=== PATIENT | female | born 1955 | race Caucasian/White ===

== ENCOUNTER 2020-08-16 11:38 | Outpatient (CLI) | payer MEDICARE, SELFPAY ==
--- NOTE | ~2020-08-16 | MMUS_ITS ---
EXAMINATION: MM diagnostic preet BI w nataly, US breast RT limited HISTORY: Right axillary increased density TECHNIQUE: Additional 3-D tomosynthesis images of the breasts were performed and synthetic 2-D images were generated. CAD analysis was submitted and interpreted. High resolution limited right breast and axillary ultrasound was performed. COMPARISON: Comparison to multiple prior studies sequentially, with oldest reviewed study dated 07/13. BREAST PARENCHYMAL COMPOSITION: Breast composed of scattered areas of fibroglandular density. FINDINGS: MAMMOGRAPHIC FINDINGS: There are no suspicious masses, calcifications or architectural distortion in either breast to sugges t malignancy. ULTRASOUND: Limited right breast and axillary ultrasound: There is a 1.7 cm lymph node at the 10:00 position in t he axilla measuring. There is a 4 mm cyst at 10:00, 4 cm from the nipple. IMPRESSION: 1. No evidence for malignancy in either breast. 2. Routine yearly screening mammogram and regular clinical breast examination are recommended. BI-RADS Category 2: Benign finding(s). Reviewed, dictated and finalized at location A. LE SOFTWARE ENGINEER IMPRESSION: 1. No evidence for malignancy in either breast. 2. Routine yearly screening mammogram and regular clinical breast examination a re recommended. BI-RADS Category 2: Benign finding(s).
--- NOTE | ~2020-08-16 | DEXA_ITS ---
Bone Density Report Name: Loretta Victor Age: 65 Sex: Female Ethnicity: White Date of : 1955 Indication: postmenopausal; Referring Provider: HOSSEIN, MITCHELL Study: Bone densitometry was performed. Exam Date: August 16, 2020 Accession number: [id number] Bone Density: Region BMD T-score Z-score Classification AP Spine (L1-L4) 1.014 -0.3 1.5 Normal Femoral Neck (Left) 0.660 -1.7 -0.1 Osteopenia Total Hip (Left) 0.844 -0.8 0.5 Normal Total Hip Bilateral Avg 0.827 -1.0 0.4 Osteopenia Femoral Neck (Right) 0.627 -2.0 -0.4 Osteopenia Total Hip (Right) 0.810 -1.1 0.2 Osteopenia World Health Organization criteria for BMD impression classify patients as: Normal (T-score at or above -1.0), Osteopenia (T-score between -1.0 and -2.5), or Osteoporosis (T-score at or below -2.5). 10-year Fracture Risk(1): Major Osteoporotic Fracture 11% Hip Fracture 1.6% Reported Risk Factors: [place] (), Neck BMD=0.627, BMI=26.2 (1) FRAX(R) Version 3.08. Fracture probability calculated for an untreated patient. Fracture probability may be lower if the patient has received treatment. Previous Exams: Region Exam Age BMD T-score BMD Change BMD Change Date g/cm2 vs Baseline vs Previous AP Spine(L1-L4) 08/16/2020 65 1.014 -0.3 -0.116(-10.3%) -0.057(-5.3%)* 08/10/2017 62 1.071 0.2 -0.060(-5.3%)# -0.023(-2.1%)# 08/15/2013 58 1.094 0.4 -0.037(-3.2%)# -0.037(-3.2%)# 08/05/2010 55 1.131 0.8 Total Hip(Left) 08/16/2020 65 0.844 -0.8 -0.180(-17.6%) -0.139(-14.1%) 08/10/2017 62 0.982 0.3 -0.041(-4.0%)# -0.017(-1.7%)# 08/15/2013 58 0.999 0.5 -0.024(-2.4%)# -0.024(-2.4%)# 08/05/2010 55 1.024 0.7 Total Hip(Right) 08/16/2020 65 0.810 -1.1 -0.149(-15.6%) -0.105(-11.5%) 08/10/2017 62 0.915 -0.2 -0.044(-4.6%)# -0.014(-1.5%)# 08/15/2013 58 0.929 -0.1 -0.030(-3.1%)# -0.030(-3.1%)# 08/05/2010 55 0.959 0.1 *Denotes significance at 95% confidence level, LSC for AP Spine = 0.022 g/cm2, LSC for Total Hip = 0.027 g/cm2 Clinical Information Provided by Patient: Patient maximum height was 64 Menopause Age: 55 No regular weight bearing exercise Onset of menses at age 11 Number of children 2 Impression: The patient has low bone mass, based on the Right Femoral Neck T-score. The patient has an estimated ten-year risk of hip fracture of 1.6% and an estimated ten-year risk of major fracture o
== END 2020-08-16 11:39 | disposition home or self-care (01) ==
LOC: ANHIMG 11:40
PROVIDERS: PCP Family Medicine; Visit Provider Nurse Practitioner
DX: M85.88 Other specified disorders of bone density and structure, other site (principal); R92.8 Other abnormal and inconclusive findings on diagnostic imaging of breast; M85.852 Other specified disorders of bone density and structure, left thigh; M85.851 Other specified disorders of bone density and structure, right thigh
CPT/HCPCS: 76642; 77062; 77066; 77080; G0279

== ENCOUNTER 2020-09-10 00:08 | Outpatient (CLI) | payer MEDICARE, SELFPAY ==
[2020-09-10 20:45] LABS: SARS-CoV-2 RNA PCR Negative
== END 2020-09-10 00:09 | disposition home or self-care (01) ==
LOC: ANHCOVIDDT 00:08
PROVIDERS: PCP Family Medicine; Visit Provider Internal Medicine Gastroenterology
DX: Z01.812 Encounter for preprocedural laboratory examination (principal); Z11.59 Encounter for screening for other viral diseases
CPT/HCPCS: 87635; C9803; U0003

== ENCOUNTER 2020-09-13 01:31 | Day surgery (SDC) | payer MEDICARE, SELFPAY ==
[2020-09-05 14:55] VITALS: BMI 26.1
[2020-09-13 07:31] VITALS: BP 175/75; PULSE 66; RESP 20; TEMP 36.5; O2SAT 99
[2020-09-13 08:01] LABS: Glucose Point of Care 112 (65-105)
[2020-09-13] MEDS: LACTATED RINGERS 1,000 ML 150 ML IV CONT (08:10)
--- NOTE | 2020-09-13 08:59 | WPDANESEPPF ---
Anes - Initial Pre Proc Eval Procedure: Operation Date: 09/13/20 08:30 Proposed Procedures p Screening Colonoscopy - Camden Fry DO Date/Time: 09/13/20 08:59 Surgeon: Camden Fry DO Pre Op Diagnosis: neoplasm screening Patient Data Age: 65 Gender: F Height: 5 ft 4 in Weight: 68.6 kg Last Vital Signs Temp 97.7 F 09/13/20 07:31 Pulse 66 09/13/20 07:31 Resp 20 09/13/20 07:31 BP 175/75 H 09/13/20 07:31 Pulse Ox 99 09/13/20 07:31 Allergies Allergy/AdvReac Type Severity Reaction Status Date / Time clindamycin Allergy Severe Other Verified 09/13/20 07:30 hydrochlorothiazide Allergy Intermediate Other Verified 09/13/20 07:30 Home Medications Medication Instructions Recorded Confirmed Type lancets 30 gauge #100 each 02/06/20 08/15/20 Rx lancets #200 each 02/07/20 08/15/20 Rx escitalopram oxalate 20 mg tablet 20 mg PO DAILY #90 tablet 03/27/20 09/05/20 Rx lisinopril 40 mg tablet 40 mg PO DAILY #90 tablet 03/27/20 09/05/20 Rx aspirin 81 mg tablet,delayed 81 mg PO DAILY 07/31/20 09/05/20 History release blood sugar diagnostic #100 each 07/31/20 08/15/20 Rx estradiol 10 mcg vaginal tablet 10 mcg VAGINAL 2XW 07/31/20 09/05/20 History fenofibrate 160 mg tablet 160 mg PO DAILY #90 tablet 07/31/20 09/05/20 Rx simvastatin 10 mg tablet 10 mg PO DAILY #90 tablet 07/31/20 09/05/20 Rx trazodone 100 mg tablet 100 mg PO QPM #90 tablet 07/31/20 09/05/20 Rx lancets #100 ea 08/01/20 08/15/20 Rx glipizide 10 mg tablet, extended 10 mg PO DAILY #90 tablet 08/02/20 09/05/20 Rx release 24 hr metformin 250 mg PO QPM 09/05/20 09/05/20 History metformin 500 mg PO QAM 09/05/20 09/05/20 History vit B6-mag cit,oxid-potass cit 2 tablet PO BID 09/05/20 09/05/20 History [Theralith XR] Laboratory Tests 09/13/20 07:56 POC Capillary Glucose 112 mg/dl H mg/dl (65-105) Patient hx anesthesia problems: none Family hx anesthesia problems: none PMFSH Past Medical History Medical History (Updated 07/31/20 @ 14:00 by Tin Rocha MD) Anxiety Backache Dyslipidemia Essential (primary) hypertension History of colon polyps Hypertension Insomnia MVP (mitral valve prolapse) Renal stone Symptomatic PVCs Type 2 diabetes mellitus without complication, without long-term current use of insulin Vitamin D deficiency Surgical History Surgical History History of cardiac cath History of cholecystectomy (~05/2016) History of foot surgery b/l History of mitral valve repair (~07/2014) Family History Family History Father Family history of cardiovascular disease Family history of emphysema Mother Family history of cardiovascular disease Other Family history of malignant neoplasm Social History Social History Smoking status: Never smoker Second hand tobacco smoke exposure: No Alcohol intake: never Substance use: never Substance use type: does not use Living arrangements: with family Gender identity (if verbalized by the patient): Female Spiritual care concerns: No Anes - Eval Final PreProcedure Day of Procedure 09/13/20 08:59 Patient weight: normal Heart: regular rate and rhythm Lungs: clear to auscultation Airway: Mallampati scale class II Neurological: alert and oriented Last oral intake: >/= 8 hours ASA classification: III Emergent: no Anesthetic plan: proceed Anesthesia type and monitoring: general GIVS and standard monitoring Informed Consent: The patient's anesthetic plan and its attendant risks and benefits were discussed with the patient/family/POA. Questions were solicited and answers provided to the satisfaction of the patient/family/POA.
--- NOTE | 2020-09-13 10:53 | WPDGICN ---
Assessment and Plan Assessment and plan (1) History of colon polyps: Code(s): Z86.010 - Personal history of colonic polyps Status: Inactive Assessment and Plan: Patient has a history of colon polyps she presents today for follow-up colonoscopy. Further recommendations will be given after endoscopy. Anticipate follow-up in 5 years. GI Consult Note Consult date/time: 09/13/20 10:53 HPI: Loretta Victor is a 65 year old female Seen evaluation today because of Dr Fry's incapacitation. Patient gives a history of prior colon polyps about 5 years ago. She returns today for follow-up surveillance exam. Her current weight appetite bowel movements are normal. She denies abdominal pain. She has had no bleeding. Her weight has remained stable. Family history is negative. [facility] Past Medical History Medical History Anxiety Backache Dyslipidemia Essential (primary) hypertension History of colon polyps Hypertension Insomnia MVP (mitral valve prolapse) Renal stone Symptomatic PVCs Type 2 diabetes mellitus without complication, without long-term current use of insulin Vitamin D deficiency Surgical History Surgical History History of cardiac cath History of cholecystectomy (~05/2016) History of foot surgery b/l History of mitral valve repair (~07/2014) Family History Family History Father Family history of cardiovascular disease Family history of emphysema Mother Family history of cardiovascular disease Other Family history of malignant neoplasm Social History Social History Smoking status: Never smoker Second hand tobacco smoke exposure: No Alcohol intake: never Substance use: never Substance use type: does not use Living arrangements: with family Gender identity (if verbalized by the patient): Female Spiritual care concerns: No Meds Home Medications and Allergies Home Medications Medication Instructions Recorded Confirmed Type lancets 30 gauge #100 each 02/06/20 08/15/20 Rx lancets #200 each 02/07/20 08/15/20 Rx escitalopram oxalate 20 mg tablet 20 mg PO DAILY #90 tablet 03/27/20 09/05/20 Rx lisinopril 40 mg tablet 40 mg PO DAILY #90 tablet 03/27/20 09/05/20 Rx aspirin 81 mg tablet,delayed 81 mg PO DAILY 07/31/20 09/05/20 History release blood sugar diagnostic #100 each 07/31/20 08/15/20 Rx estradiol 10 mcg vaginal tablet 10 mcg VAGINAL 2XW 07/31/20 09/05/20 History fenofibrate 160 mg tablet 160 mg PO DAILY #90 tablet 07/31/20 09/05/20 Rx simvastatin 10 mg tablet 10 mg PO DAILY #90 tablet 07/31/20 09/05/20 Rx trazodone 100 mg tablet 100 mg PO QPM #90 tablet 07/31/20 09/05/20 Rx lancets #100 ea 08/01/20 08/15/20 Rx glipizide 10 mg tablet, extended 10 mg PO DAILY #90 tablet 08/02/20 09/05/20 Rx release 24 hr metformin 250 mg PO QPM 09/05/20 09/05/20 History metformin 500 mg PO QAM 09/05/20 09/05/20 History vit B6-mag cit,oxid-potass cit 2 tablet PO BID 09/05/20 09/05/20 History [Theralith XR] Allergies Allergy/AdvReac Type Severity Reaction Status Date / Time clindamycin Allergy Severe Other Verified 09/13/20 07:30 hydrochlorothiazide Allergy Intermediate Other Verified 09/13/20 07:30 Vital Signs Vital Signs - 24 hr 09/13/20 07:31 Temperature 97.7 F Pulse Rate 66 Respiratory Rate 20 Blood Pressure 175/75 H Pulse Oximetry 99 Exam Narrative: Exam Narrative: Physical exam reveals patient to be alert. Vital signs stable. HEENT exam unremarkable. Lungs are clear to auscultation and percussion. Heart is without murmur or extra sounds. Abdominal exam bowel sounds are present soft nontender with no organomegaly. Digital external rectal exam is normal.
[2020-09-13 12:13] VITALS: BP 137/69; PULSE 57; RESP 21; O2SAT 97
[2020-09-13 12:23] VITALS: BP 148/76; PULSE 57; RESP 21; O2SAT 100
[2020-09-13 12:33] VITALS: BP 146/72; PULSE 54; RESP 23; O2SAT 99
== END 2020-09-13 12:52 | disposition home or self-care (01) ==
PROVIDERS: Internal Medicine Gastroenterology; PCP Family Medicine; Visit Provider Internal Medicine Gastroenterology
PROC: 0DJD8ZZ Inspection of Lower Intestinal Tract, Via Natural or Artificial Opening Endoscopic (ICD-10-PCS; CPT 45378; principal; 2020-09-13 08:30)
DX: Z12.11 Encounter for screening for malignant neoplasm of colon (principal); K64.8 Other hemorrhoids; Z86.010 Personal history of colon polyps; I10 Essential (primary) hypertension; E78.5 Hyperlipidemia, unspecified; I34.1 Nonrheumatic mitral (valve) prolapse; E55.9 Vitamin D deficiency, unspecified; E11.9 Type 2 diabetes mellitus without complications; F41.9 Anxiety disorder, unspecified; Z79.84 Long term (current) use of oral hypoglycemic drugs; Z79.82 Long term (current) use of aspirin
CPT/HCPCS: G0105; J2704; J7120

== ENCOUNTER 2020-12-11 14:15 | Outpatient (CLI) | payer MEDICARE, SELFPAY ==
--- NOTE | ~2020-12-11 | XR_ITS ---
EXAMINATION: XR abdomen/kub 1V INDICATION: Bilateral kidney stones TECHNIQUE: Supine views of the abdomen were obtained on 2 radiographs. COMPARISON: 10/17/2019, 11/04/2019 FINDINGS: There is a 6 mm stone of the right kidney. A 4 mm stone is seen in the left kidney. No ston es are identified along the expected courses of the ureters or within the urinary bladder. The bowel gas pattern is normal. Changes of cardiac valve surgery are noted. 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 IMPRESSION: 1. Bilateral nephrolithiasis. Reviewed, dictated and finalized at location A. NELER
== END 2020-12-11 14:16 | disposition home or self-care (01) ==
LOC: ANHIMG 14:19
PROVIDERS: PCP Family Medicine; Visit Provider Nurse Practitioner Adult Health
DX: N20.0 Calculus of kidney (principal)
CPT/HCPCS: 74018

== ENCOUNTER 2020-12-21 10:11 | Outpatient (CLI) | payer MEDICARE, SELFPAY ==
--- NOTE | 2020-12-21 10:26 | ECG_ITS ---
Measurements Intervals [place] Rate: 70 P: 47 AK: 149 QRS: 58 QRSD: 94 T: 71 QT: 375 QTc: 405 Interpretive Statements SINUS RHYTHM NONSPECIFIC ST & T-WAVE ABNORMALITY- ANTEROLAT/HIGH LAT LEADS BASELINE ARTIFACT- I, III, AVR, AVL, AVF, V5 BORDERLINE ECG Electronically Signed On 12-21-2020 10:55:04 PRODUCT OWNER by Lavon Albarado D.O.
[2020-12-21 11:02] LABS: INR 0.9; Prothrombin Time 13.2 Seconds (11.1-14.7)
[2020-12-21 11:03] LABS: Partial Thromboplastin Time 22.3 SECONDS (22.3-36.8)
[2020-12-21 11:05] LABS: Anion Gap 4 mmol/L (8-16); Blood Urea Nitrogen 20 mg/dL (7-17); Calcium 10.2 mg/dL (8.4-10.2); Carbon Dioxide 36 mmol/L (22-30); Chloride 100 mmol/L (98-107); Estimated Glomerular Filt Rate 55; Glucose 272 mg/dL (65-105); Potassium 4.3 mmol/L (3.4-5.0); Sodium 140 mmol/L (137-145)
== END 2020-12-21 10:12 | disposition home or self-care (01) ==
LOC: ANHSURGERY 10:17
PROVIDERS: Anesthesiology; PCP Family Medicine; Visit Provider Urology
DX: Z01.812 Encounter for preprocedural laboratory examination (principal); N20.0 Calculus of kidney; E11.9 Type 2 diabetes mellitus without complications; I10 Essential (primary) hypertension; Z51.81 Encounter for therapeutic drug level monitoring; Z79.899 Other long term (current) drug therapy
CPT/HCPCS: 36415; 80048; 85610; 85730; 87077; 87086; 87088; 87186; 93005

== ENCOUNTER → 2020-12-25 00:34 | Outpatient (CLI) | payer MEDICARE, SELFPAY ==
[2020-12-25 18:32] LABS: SARS-CoV-2 RNA PCR Negative
== END ==
PROVIDERS: PCP Family Medicine; Visit Provider Urology
DX: Z01.812 Encounter for preprocedural laboratory examination (principal); Z20.822 Contact with and (suspected) exposure to COVID-19
CPT/HCPCS: C9803; U0003; U0005

== ENCOUNTER 2020-12-28 01:36 | Day surgery (SDC) | payer MEDICARE, SELFPAY ==
[2020-12-20 08:44] VITALS: BMI 26.9
--- NOTE | ~2020-12-28 | XR_ITS ---
EXAMINATION: XR abdomen/kub 1V DATE: 12/28/2020 06:29 INDICATION: Kidney stone. TECHNIQUE: A supine view of the abdomen was obtained. COMPARISON: CT abdomen and pelvis 11/04/2019, abdomen radiographs 12/11/2020 FINDINGS: There are no dilated loops of bowel. Surgical clips in the right upper quadrant are likely from cholecystectomy. There are vascular calcifications in the pelvis. There is a 6 mm stone in right kidney. There is a 4 mm stone in left kidney. IMPRESSION: 1. Bilateral kidney stones. Reviewed, dictated and finalized at location A. IMPRESSION: 1. Bilateral kidney stones.
[2020-12-28] MEDS: LACTATED RINGERS 1,000 ML 30 ML IV CONT (06:50)
[2020-12-28 06:58] LABS: Glucose Point of Care 147 (65-105)
[2020-12-28 07:00] VITALS: BP 174/78; PULSE 66; RESP 18; TEMP 36.1; O2SAT 100
--- NOTE | 2020-12-28 07:07 | WPDHPUPDATE1 ---
History and Physical Update Update Date/Time: 12/28/20 07:07 History and Physical has been reviewed, including an updated exam of the patient. There are NO changes in the patient's condition. Risks, benefits, and alternatives have been discussed and questions answered. Patient agrees to proceed with procedure.
--- NOTE | 2020-12-28 07:08 | WPDANESEPPF ---
Anes - Initial Pre Proc Eval Procedure: Operation Date: 12/28/20 07:30 Proposed Procedures p Right Renal Extracorporeal Shock Wave Lithotripsy - Ernie Andrea MD Date/Time: 12/28/20 07:08 Surgeon: Ernie Andrea MD Pre Op Diagnosis: right kidney stone Patient Data Age: 65 Gender: F Height: 5 ft 4 in Weight: 69.4 kg Last Vital Signs Temp 96.9 F L 12/28/20 07:00 Pulse 66 12/28/20 07:00 Resp 18 12/28/20 07:00 BP 174/78 H 12/28/20 07:00 Pulse Ox 100 12/28/20 07:00 Allergies Allergy/AdvReac Type Severity Reaction Status Date / Time clindamycin AdvReac Intermediate Other Verified 12/28/20 06:58 hydrochlorothiazide AdvReac Intermediate Dizziness Verified 12/28/20 06:58 Home Medications Medication Instructions Recorded Confirmed Type lancets 30 gauge #100 each 02/06/20 08/15/20 Rx lancets #200 each 02/07/20 08/15/20 Rx lisinopril 40 mg tablet 40 mg PO DAILY #90 tablet 03/27/20 12/20/20 Rx aspirin 81 mg tablet,delayed 81 mg PO DAILY 07/31/20 12/20/20 History release blood sugar diagnostic #100 each 07/31/20 08/15/20 Rx estradiol 10 mcg vaginal tablet 10 mcg VAGINAL 2XW 07/31/20 12/20/20 History fenofibrate 160 mg tablet 160 mg PO DAILY #90 tablet 07/31/20 12/20/20 Rx simvastatin 10 mg tablet 10 mg PO DAILY #90 tablet 07/31/20 12/20/20 Rx lancets #100 ea 08/01/20 08/15/20 Rx vit B6-mag cit,oxid-potass cit 2 tablet PO BID 09/05/20 12/20/20 History [Theralith XR] glipizide 10 mg tablet, extended 10 mg PO DAILY #90 tablet 11/05/20 12/20/20 Rx release 24 hr metformin 500 mg tablet,extended 500 mg PO BID #180 tablet 11/05/20 12/20/20 Rx release 24hr trazodone 100 mg tablet 100 mg PO QPM #90 tablet 01/25/21 03/11/21 Rx escitalopram oxalate 20 mg PO QAM 12/20/20 12/20/20 History nitrofurantoin monohyd/m-cryst 100 mg PO BID 12/20/20 12/20/20 History Laboratory Tests 12/28/20 06:51 POC Capillary Glucose 147 mg/dl H mg/dl (65-105) Patient hx anesthesia problems: none Family hx anesthesia problems: none PMFSH Past Medical History Medical History (Updated 09/13/20 @ 10:55 by Camden Ramirez MD) Anxiety Backache Dyslipidemia Essential (primary) hypertension History of colon polyps Hypertension Insomnia MVP (mitral valve prolapse) Renal stone Symptomatic PVCs Type 2 diabetes mellitus without complication, without long-term current use of insulin Vitamin D deficiency Surgical History Surgical History History of cardiac cath History of cholecystectomy (~05/2016) History of foot surgery b/l History of mitral valve repair (~07/2014) Family History Family History Father Family history of cardiovascular disease Family history of emphysema Mother Family history of cardiovascular disease Other Family history of malignant neoplasm Social History Social History Smoking status: Never smoker Second hand tobacco smoke exposure: No Alcohol intake: never Substance use: never Substance use type: does not use Living arrangements: with family Additional living arrangements comments: TRAM Gender identity (if verbalized by the patient): Female Spiritual care concerns: No Anes - Eval Final PreProcedure Day of Procedure 12/28/20 07:08 Patient weight: normal Heart: regular rate and rhythm Lungs: clear to auscultation Airway: Mallampati scale class III Neurological: alert and oriented Last oral intake: >/= 8 hours ASA classification: III Emergent: no Anesthetic plan: proceed Anesthesia type and monitoring: general LMA and standard monitoring Informed Consent: The patient's anesthetic plan and its attendant risks and benefits were discussed with the patient/family/POA. Questions were solicited and answers provided to the satisfaction of the patient/family/POA.
[2020-12-28] MEDS: ceFAZolin 2 GM/D5W 50 ML 2 GM/50 ML BAG IVPB (07:24)
--- NOTE | 2020-12-28 07:59 | P.OP_ITS ---
Procedure Note - Detailed Date of procedure: 12/28/20 Pre-op diagnosis: right kidney stone Post-op diagnosis: same Procedure performed: Right ESWL Description of procedure: 1) Activity: * No driving or important decisions [id number]. * No lifting/straining >15lbs. [id number]. 2) Strain urine until one stone fragment retrieved. Bring that fragment to your follow-up visit. 3) Diet: resume normal pre-admission diet. 4) Follow-up: 2-3 weeks with K[facility] / call for appointment ([phone]) Anesthesia: GLMA Surgeon: Ernie Andrea MD Truck Jumper: None Drains: No Packing: No Pathology: none sent Complications: No immediate complications Condition: stable Disposition: PACU
[2020-12-28 08:15] VITALS: BP 154/59; PULSE 64; RESP 14; TEMP 36.3; O2SAT 100
[2020-12-28 08:19] LABS: Glucose Point of Care 134 (65-105)
[2020-12-28 08:30] VITALS: BP 149/66; PULSE 64; RESP 12; O2SAT 99
[2020-12-28 08:44] VITALS: BP 152/64; PULSE 69; RESP 16
--- NOTE | 2020-12-28 08:55 | SUR.PHASEII ---
0855; PT WALKED TO BATHROOM. GAIT STEADY.
[2020-12-28 09:15] VITALS: BP 126/80; PULSE 64; RESP 16
[2020-12-28 09:36] VITALS: BP 144/69; PULSE 67; RESP 16
--- NOTE | 2020-12-28 09:36 | SUR.PHASEII ---
0930; PT PASSES A SMALL STONE FRAGMENT. PLACED IN STERILE CUP AND GIVEN TO PT TO TAKE TO DR ROCK OFFICE FOR FOLLOW UP
--- NOTE | 2020-12-31 17:06 | P.OP_ITS ---
Procedure Note - Detailed Date of procedure: 12/31/20 Pre-op diagnosis: right kidney stone Post-op diagnosis: same Procedure performed: Right ESWL Description of procedure: The patient was brought to the operative suite where she was placed in the supine position on the Dornier lithotripsy table. The focal point of the lithotripter was placed at a 6-7mm right renal calculus. A total of 2500 shocks were delivered at a power setting of 4. There appeared to be good fragmentation of the stone. The patient tolerated the procedure well and was taken to the recovery room in good condition. Anesthesia: GLMA Surgeon: Ernie Andrea MD Forming Yardage Control Operator: None Estimated blood loss (mL): 0 Drains: No Packing: No Pathology: none sent Complications: No immediate complications Condition: stable
== END 2020-12-28 09:49 | disposition home or self-care (01) ==
PROVIDERS: PCP Family Medicine; Visit Provider Urology
PROC: (CPT 50590; principal; 2020-12-28 07:30)
DX: N20.0 Calculus of kidney (principal); Z79.82 Long term (current) use of aspirin; Z79.84 Long term (current) use of oral hypoglycemic drugs; F41.9 Anxiety disorder, unspecified; E78.5 Hyperlipidemia, unspecified; I10 Essential (primary) hypertension; G47.00 Insomnia, unspecified; I34.1 Nonrheumatic mitral (valve) prolapse; E55.9 Vitamin D deficiency, unspecified; E11.9 Type 2 diabetes mellitus without complications; R31.9 Hematuria, unspecified; I49.3 Ventricular premature depolarization
CPT/HCPCS: 50590; 74018; 82948; J0690; J1100; J2250; J2405; J2704; J3010; J7120

== ENCOUNTER 2021-01-11 11:16 | Outpatient (CLI) | payer MEDICARE, SELFPAY ==
--- NOTE | ~2021-01-11 | XR_ITS ---
XR abdomen/kub 1V 01/11/2021 11:35 INDICATION: Renal stones TECHNIQUE: KUB COMPARISON: None FINDINGS: Bowel gas pattern is normal. There is no evidence of free air, mass, organomegaly, ascites or obstruction. There is a small stone in the lower pole of the left kidney. Bowel gas pattern nonob structive. There are pelvic phleboliths. No acute osseous abnormality. The bones appear intact. IMPRESSION: 1: Left nephrolithiasis. Reviewed, dictated and finalized at location B. IMPRESSION: 1: Left nephrolithiasis.
== END 2021-01-11 11:17 | disposition home or self-care (01) ==
LOC: ANHIMG 11:23
PROVIDERS: PCP Family Medicine; Visit Provider Nurse Practitioner Adult Health
DX: N20.0 Calculus of kidney (principal)
CPT/HCPCS: 74018

== ENCOUNTER → 2021-02-11 12:47 | Outpatient (CLI) | payer MEDICARE, SELFPAY ==
--- NOTE | ~2021-02-11 | US_ITS ---
EXAMINATION: US transvaginal DATE: 02/11/2021 13:24 INDICATION: Pelvic pressure Comparison:Ultrasound dated 06/30/2019 TECHNIQUE: Multiple endovaginal sonographic images of the pelvis performed. FINDINGS: The uterus measures 5.9 x 3.6 x 3.6 cm. The endometrial complex measures 5 mm. The ovaries are not visualized. There is no free fluid in the pelvis. There are no abnormal masses seen on either side. IMPRESSION: 1. Thickened endomtrial complex. The differential diagnosis includes endometrial hyperplasia, polyp a nd carcinoma. Biopsy is recommended. Reviewed, dictated and finalized at location A. IMPRESSION: 1. Thickened endomtrial complex. The differential diagnosis includes endometria l hyperplasia, polyp and carcinoma. Biopsy is recommended.
== END ==
PROVIDERS: Visit Provider Nurse Practitioner
DX: R10.2 Pelvic and perineal pain (principal)
CPT/HCPCS: 76830

== ENCOUNTER 2021-03-08 12:58 | Outpatient (CLI) | payer MEDICARE, SELFPAY ==
[2021-03-08 13:27] LABS: Anion Gap 5 mmol/L (8-16); Blood Urea Nitrogen 20 mg/dL (7-17); Calcium 10.3 mg/dL (8.4-10.2); Carbon Dioxide 35 mmol/L (22-30); Chloride 102 mmol/L (98-107); Estimated Glomerular Filt Rate 55; Glucose 195 mg/dL (65-105); Potassium 4.9 mmol/L (3.4-5.0); Sodium 142 mmol/L (137-145)
== END 2021-03-08 12:59 | disposition home or self-care (01) ==
LOC: ANHSURGERY 12:58
PROVIDERS: Anesthesiology; PCP Family Medicine; Visit Provider Obstetrics & Gynecology Gynecology
DX: Z01.818 Encounter for other preprocedural examination (principal); E11.9 Type 2 diabetes mellitus without complications
CPT/HCPCS: 36415; 80048

== ENCOUNTER → 2021-03-15 02:41 | Outpatient (CLI) | payer MEDICARE, SELFPAY ==
[2021-03-15 18:15] LABS: SARS-CoV-2 RNA PCR Negative
== END ==
PROVIDERS: PCP Family Medicine; Visit Provider Obstetrics & Gynecology Gynecology
DX: Z01.812 Encounter for preprocedural laboratory examination (principal); Z20.822 Contact with and (suspected) exposure to COVID-19
CPT/HCPCS: C9803; U0003; U0005

== ENCOUNTER 2021-03-18 00:44 | Day surgery (SDC) | payer MEDICARE, SELFPAY ==
[2021-03-04 09:24] VITALS: BMI 25.9
--- NOTE | 2021-03-18 09:07 | WPDHPUPDATE1 ---
History and Physical Update Update Date/Time: 03/18/21 09:07 History and Physical has been reviewed, including an updated exam of the patient. There are NO changes in the patient's condition. Risks, benefits, and alternatives have been discussed and questions answered. Patient agrees to proceed with procedure.
--- NOTE | 2021-03-18 09:08 | PM.HPGS ---
History of Present Illness History of Present Illness Consent: Risks, benefits, and alternatives have been discussed and questions answered. Patient agrees to proceed with procedure. Chief complaint: thicken endometrial lining Narrative: Loretta Victor is a 65 year old female who has been following with Urology for hematuria and bladder infections. The patient call for an appointment with our office with complaints of pelvic pressure and possible urinary versus vaginal infection. Urinalysis was negative. Vaginal exam was normal at that time. Due to pelvic pressure the patient requested and underwent a pelvic ultrasound the ultrasound reveals a small 6cm uterus with the thickened lining at 5mm. Patient denies vaginal bleeding. It was recommended to proceed with biopsy for thickened lining. Hysteroscopy with D&C was reviewed and the risks of infection, bleeding, and perforation were reviewed. Postop pathology is also discussed. Patient voices understanding and agrees to proceed. Review of Systems Review of Systems: Narrative: not repeated day of surgery; patient states no changes in status PMFSH Past Medical History Medical History (Updated 03/18/21 @ 09:13 by Mirta Shelton MD) Anxiety Backache Dyslipidemia Essential (primary) hypertension History of colon polyps Hypertension Insomnia MVP (mitral valve prolapse) Renal stone Symptomatic PVCs Type 2 diabetes mellitus without complication, without long-term current use of insulin Vitamin D deficiency Surgical History Surgical History (Updated 03/18/21 @ 09:12 by Mirta Shelton MD) History of cardiac cath History of cholecystectomy (~05/2016) History of foot surgery b/l History of mitral valve repair (~07/2014) Status post hysteroscopic polypectomy 2018 Family History Family History Father Family history of cardiovascular disease Family history of emphysema Mother Family history of cardiovascular disease Other Family history of malignant neoplasm Social History Social History Smoking status: Never smoker Second hand tobacco smoke exposure: No Alcohol intake: never Substance use: never Substance use type: does not use Living arrangements: with family Additional living arrangements comments: [place] Gender identity (if verbalized by the patient): Female Spiritual care concerns: No Meds Home Medications and Allergies Home Medications Medication Instructions Recorded Confirmed Type lancets 30 gauge #100 each 02/06/20 08/15/20 Rx lancets #200 each 02/07/20 08/15/20 Rx aspirin 81 mg tablet,delayed 81 mg PO DAILY 07/31/20 03/04/21 History release estradiol 10 mcg vaginal tablet 10 mcg VAGINAL 2XW 07/31/20 03/04/21 History Theralith XR 2 tablet PO BID 09/05/20 03/04/21 History glipizide 10 mg tablet, extended 10 mg PO DAILY #90 tablet 11/05/20 03/04/21 Rx release 24 hr metformin 500 mg tablet,extended 500 mg PO BID #180 tablet 11/05/20 03/04/21 Rx release 24hr trazodone 100 mg tablet 100 mg PO QPM #90 tablet 11/05/20 03/04/21 Rx escitalopram oxalate 20 mg PO QAM 12/20/20 03/04/21 History blood sugar diagnostic #100 each 01/02/21 Rx fenofibrate 160 mg tablet 160 mg PO DAILY #90 tablet 01/02/21 03/04/21 Rx lancets #100 ea 01/02/21 Rx lisinopril 40 mg tablet 40 mg PO DAILY #90 tablet 01/02/21 03/04/21 Rx simvastatin 10 mg tablet 10 mg PO DAILY #90 tablet 01/02/21 03/04/21 Rx Allergies Allergy/AdvReac Type Severity Reaction Status Date / Time clindamycin AdvReac Intermediate Other Verified 03/18/21 09:04 hydrochlorothiazide AdvReac Intermediate Dizziness Verified 03/18/21 09:04 Exam Const: General: healthy appearing and no acute distress : External Female Exam: normal external appearance Speculum Exam - Vagina: normal appearance of the vagina, vagina atrophic and other (cystocele) Spe
[2021-03-18 09:40] LABS: Glucose Point of Care 134 mg/dl (65-105)
[2021-03-18 09:45] VITALS: BP 147/62; PULSE 72; RESP 14; TEMP 36.3; O2SAT 100; BMI 26.1
--- NOTE | 2021-03-18 09:48 | WPDANESEPPF ---
Anes - Initial Pre Proc Eval Procedure: Operation Date: 03/18/21 10:45 Proposed Procedures p Hysteroscopy Dilation and Curettage - Mirta Shelton MD Date/Time: 03/18/21 09:48 Surgeon: Mirta Shelton MD Pre Op Diagnosis: thicken endometrial lining Patient Data Age: 65 Gender: F Height: 5 ft 4 in Weight: 68.4 kg Allergies Allergy/AdvReac Type Severity Reaction Status Date / Time clindamycin AdvReac Intermediate Other Verified 03/18/21 09:04 hydrochlorothiazide AdvReac Intermediate Dizziness Verified 03/18/21 09:04 Home Medications Medication Instructions Recorded Confirmed Type lancets 30 gauge #100 each 02/06/20 08/15/20 Rx lancets #200 each 02/07/20 08/15/20 Rx aspirin 81 mg tablet,delayed 81 mg PO DAILY 07/31/20 03/04/21 History release estradiol 10 mcg vaginal tablet 10 mcg VAGINAL 2XW 07/31/20 03/04/21 History Theralith XR 2 tablet PO BID 09/05/20 03/04/21 History glipizide 10 mg tablet, extended 10 mg PO DAILY #90 tablet 11/05/20 03/04/21 Rx release 24 hr metformin 500 mg tablet,extended 500 mg PO BID #180 tablet 11/05/20 03/04/21 Rx release 24hr trazodone 100 mg tablet 100 mg PO QPM #90 tablet 11/05/20 03/04/21 Rx escitalopram oxalate 20 mg PO QAM 12/20/20 03/18/21 History blood sugar diagnostic #100 each 01/02/21 Rx fenofibrate 160 mg tablet 160 mg PO DAILY #90 tablet 01/02/21 03/04/21 Rx lancets #100 ea 01/02/21 Rx lisinopril 40 mg tablet 40 mg PO DAILY #90 tablet 01/02/21 03/04/21 Rx simvastatin 10 mg tablet 10 mg PO DAILY #90 tablet 01/02/21 03/04/21 Rx Laboratory Tests 03/18/21 09:37 POC Capillary Glucose 134 mg/dl H mg/dl (65-105) Patient hx anesthesia problems: post op nausea/vomiting Family hx anesthesia problems: none PMFSH Past Medical History Medical History (Updated 03/18/21 @ 09:13 by Mirta Shelton MD) Anxiety Backache Dyslipidemia Essential (primary) hypertension History of colon polyps Hypertension Insomnia MVP (mitral valve prolapse) Renal stone Symptomatic PVCs Type 2 diabetes mellitus without complication, without long-term current use of insulin Vitamin D deficiency Surgical History Surgical History (Updated 03/18/21 @ 09:12 by Mirta Shelton MD) History of cardiac cath History of cholecystectomy (~05/2016) History of foot surgery b/l History of mitral valve repair (~07/2014) Status post hysteroscopic polypectomy 2018 Family History Family History Father Family history of cardiovascular disease Family history of emphysema Mother Family history of cardiovascular disease Other Family history of malignant neoplasm Social History Social History Smoking status: Never smoker Second hand tobacco smoke exposure: No Alcohol intake: never Substance use: never Substance use type: does not use Living arrangements: with family Additional living arrangements comments: [place] Gender identity (if verbalized by the patient): Female Spiritual care concerns: No Anes - Eval Final PreProcedure Day of Procedure 03/18/21 09:48 Patient weight: normal Heart: regular rate and rhythm Lungs: clear to auscultation Airway: Mallampati scale class II Neurological: alert and oriented Last oral intake: >/= 8 hours ASA classification: III Emergent: no Anesthetic plan: proceed Anesthesia type and monitoring: general GIVS and standard monitoring Informed Consent: The patient's anesthetic plan and its attendant risks and benefits were discussed with the patient/family/POA. Questions were solicited and answers provided to the satisfaction of the patient/family/POA.
[2021-03-18] MEDS: ACETAMINOPHEN 500 MG TABLET 1000 MG PO (09:49)
[2021-03-18] MEDS: LACTATED RINGERS 1,000 ML 30 ML IV CONT (10:08)
--- NOTE | 2021-03-18 11:06 | P.OP_ITS ---
Procedure Note - Detailed Date of Procedure 03/18/21 Pre-op Diagnosis thicken endometrial lining Post-op Diagnosis same Procedure Performed D&C hysteroscopy Surgeon Mirta Shelton MD Anesthesia MAC and local Findings Uterus sounds to 7cm; endometrium appears grossly atrophic Description of Procedure The patient was taken to the operating room and placed under anesthesia in the dorsal lithotomy position. She was prepped and draped in the usual sterile fa shion. The bivalve speculum was placed in the vagina and the cervix is grasped on the anterior lip with a tenaculum. Cervix is injected with 1% lidocaine in each quadrant. The sound meets significant resistance at the internal os. The os Finders are used to open the internal os. The uterus is then sounded to 7cm. The cervix is serially dilated with Hegar. The diagnostic hysteroscope was miriam manolo with the stated findings. The hysteroscope was removed and the sharp curette used to curette the endometrium until a good uterine cry is noted in all areas. Minimal material was obtained consistent with the atrophic appearance. All instruments are removed. Sponge, needle, and instrument counts are correct per the OR staff. Patient is awakened from anesthesia and taken to recovery in stable condition. Estimated Blood Loss 5 Drains No Packing No Pathology yes (Endometrial curettings) Complications No immediate complications Condition stable Disposition PACU
[2021-03-18 11:12] VITALS: BP 137/55; PULSE 76; RESP 15; O2SAT 97
[2021-03-18 11:36] LABS: Glucose Point of Care 119 mg/dl (65-105)
[2021-03-18 11:42] VITALS: BP 139/61; PULSE 72; RESP 14
[2021-03-18 11:55] VITALS: BP 159/75; PULSE 68; RESP 14
== END 2021-03-18 12:05 | disposition home or self-care (01) ==
PROVIDERS: PCP Family Medicine; Visit Provider Obstetrics & Gynecology Gynecology
PROC: 0U5B8ZZ Destruction of Endometrium, Via Natural or Artificial Opening Endoscopic (ICD-10-PCS; CPT 58563; principal; 2021-03-18 10:45)
DX: N85.8 Other specified noninflammatory disorders of uterus (principal); Z79.82 Long term (current) use of aspirin; Z79.84 Long term (current) use of oral hypoglycemic drugs; F41.9 Anxiety disorder, unspecified; E78.5 Hyperlipidemia, unspecified; I10 Essential (primary) hypertension; G47.00 Insomnia, unspecified; I34.1 Nonrheumatic mitral (valve) prolapse; E11.9 Type 2 diabetes mellitus without complications; E55.9 Vitamin D deficiency, unspecified
CPT/HCPCS: 58558; 82948; 88305; A9270; J2704; J3010; J7030; J7120

== ENCOUNTER → 2021-04-17 12:21 | Outpatient (CLI) | payer MEDICARE, SELFPAY ==
--- NOTE | ~2021-04-17 | XR_ITS ---
XR lumbar spine 2-3V DATE: 04/17/2021 13:01 INDICATION: Back pain TECHNIQUE: Standing AP, lateral, coned lateral lumbosacral views COMPARISON: 04/11/2019 lumbar spine 04/23/2019 MR lumbar spine FINDINGS: Normal alignment lumbar spine. No fracture or bone destruction or spondylolisthesis. There is mild degenerative spurring. Lumbar and lumbosacral interspaces are relatively preserved. The lumba r and included lower thoracic pedicles are intact. The sacroiliac joints are normal. Status post cholecystectomy. IMPRESSION: Mild degenerative change Reviewed, dictated and finalized at location A. IMPRESSION: Mild degenerative change
== END ==
PROVIDERS: PCP Family Medicine; Visit Provider Family Medicine
DX: M47.816 Spondylosis without myelopathy or radiculopathy, lumbar region (principal)
CPT/HCPCS: 72100

== ENCOUNTER 2021-07-25 11:03 | Outpatient (CLI) | payer MEDICARE, SELFPAY ==
--- NOTE | ~2021-07-25 | XR_ITS ---
EXAMINATION: XR abdomen/kub 1V DATE: 07/25/2021 11:22 INDICATION: Bilateral kidney stones. TECHNIQUE: A supine view of the abdomen on 2 radiographs was obtained. COMPARISON: Abdomen radiographs 01/11/2021 FINDINGS: There are no dilated loops of bowel. Surgical clips in the right upper quadrant are likely from cholecystectomy. There are phleboliths in the pelvis. There are 2 mm and 3 mm stones in left kid saravanan lower pole. IMPRESSION: 1. Small left kidney stones. Reviewed, dictated and finalized at location A.
== END 2021-07-25 11:04 | disposition home or self-care (01) ==
LOC: ANHIMG 11:08
PROVIDERS: PCP Family Medicine; Visit Provider Urology
DX: N20.0 Calculus of kidney (principal)
CPT/HCPCS: 74018

== ENCOUNTER 2021-09-30 14:50 | Outpatient (CLI) | payer MEDICARE, SELFPAY ==
--- NOTE | ~2021-09-30 | MM_ITS ---
EXAMINATION: MM screening preet BI w nataly HISTORY: Screening mammogram, family history of breast cancer in her mother. TECHNIQUE: Craniocaudal and mediolateral oblique 3-D tomosynthesis images were obtained and synthetic 2-D images were generated. CAD analysis was submitted and interpreted. COMPARISON: 08/16/2020, 08/16/2019, 08/11/2018 BREAST PARENCHYMAL COMPOSITION: There are scattered areas of fibroglandular density. FINDINGS: There is no evidence of suspicious mass, calcification, or architectural distortion to sugg est malignancy in either breast. There has been no suspicious interval change. IMPRESSION: 1. No mammographic evidence of malignancy. 2. Recommend routine screening mammography in one year. BI-RADS Category 1: Negative Reviewed, dictated and finalized at location A. 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
== END 2021-09-30 14:51 | disposition home or self-care (01) ==
LOC: ANHIMG 14:54
PROVIDERS: PCP Family Medicine; Visit Provider Nurse Practitioner
DX: Z12.31 Encounter for screening mammogram for malignant neoplasm of breast (principal)
CPT/HCPCS: 77063; 77067

== ENCOUNTER 2022-03-04 10:44 | Outpatient (CLI) | payer MEDICARE, SELFPAY ==
--- NOTE | ~2022-03-04 | XR_ITS ---
XR abdomen/kub 1V 03/04/2022 11:02 INDICATION: Kidney stones TECHNIQUE: KUB COMPARISON: Comparison to multiple prior studies sequentially, with oldest reviewed study dated 11/2019. FINDINGS: Bowel gas pattern is normal. There are cholecystectomy clips. There is no evidence of free air, mass, organomegaly, ascites or obstruction. No abnormal calculi are seen. The bones appear int act. IMPRESSION: 1: No acute abdominal abnormality identified. Reviewed, dictated and finalized at location A.
== END 2022-03-04 10:45 | disposition home or self-care (01) ==
PROVIDERS: PCP Family Medicine; Visit Provider Urology
DX: R10.9 Unspecified abdominal pain (principal)
CPT/HCPCS: 74018

== ENCOUNTER 2022-10-15 11:32 | Outpatient (CLI) | payer MEDICARE, SELFPAY ==
--- NOTE | ~2022-10-15 | MM_ITS ---
EXAMINATION: MM screening preet BI w nataly HISTORY: Screening mammogram, family history of breast cancer in her mother. TECHNIQUE: Craniocaudal and mediolateral oblique 3-D tomosynthesis images were obtained and synthetic 2-D images were generated. CAD analysis was submitted and interpreted. COMPARISON: 09/30/2021, 08/16/2020, 08/16/2019 BREAST PARENCHYMAL COMPOSITION: There are scattered areas of fibroglandular density. FINDINGS: No suspicious mass, calcification, or architectural distortion are identified in either maggi ast to suggest malignancy. There has been no suspicious interval change. IMPRESSION: 1. No mammographic evidence of malignancy. 2. Recommend routine screening mammography in one year. BI-RADS Category 1: Negative Reviewed, dictated and finalized at location A. 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
== END 2022-10-15 11:33 | disposition home or self-care (01) ==
LOC: ANHIMG 11:35
PROVIDERS: PCP Family Medicine; Visit Provider Nurse Practitioner
DX: Z12.31 Encounter for screening mammogram for malignant neoplasm of breast (principal)
CPT/HCPCS: 77063; 77067

== ENCOUNTER 2022-11-04 13:01 | Outpatient (CLI) | payer MEDICARE, SELFPAY ==
--- NOTE | ~2022-11-04 | DEXA_ITS ---
Bone Density Report Name: RADHA SEGURA Age: 67 Sex: Female Ethnicity: White Date of : 1955 Indication: osteopenia; height loss; postmenopausal Referring Provider: HOSSEIN, MITCHELL Study: Bone densitometry was performed. Exam Date: November 04, 2022 Accession number: [id number] Bone Density: Region BMD T-score Z-score Classification AP Spine(L1-L4) 1.032 -0.1 1.9 Normal Femoral Neck (Left) 0.606 -2.2 -0.5 Osteopenia Total Hip (Left) 0.859 -0.7 0.7 Normal Femoral Neck (Right) 0.593 -2.3 -0.6 Osteopenia Total Hip (Right) 0.855 -0.7 0.7 Normal Total Hip Mean 0.857 -0.7 0.7 Normal World Health Organization criteria for BMD impression classify patients as: Normal (T-score at or above -1.0), Osteopenia (T-score between -1.0 and -2.5), or Osteoporosis (T-score at or below -2.5). 10-year Fracture Risk(1): Major Osteoporotic Fracture 13% Hip Fracture 2.5% Reported Risk Factors: [place] (), Neck BMD=0.593, BMI=26.6 (1) FRAX(R) Version 3.08. Fracture probability calculated for an untreated patient. Fracture probability may be lower if the patient has received treatment. Previous Exams: Region Exam Age BMD T-score BMD Change BMD Change Date g/cm2 vs Baseline vs Previous Total Hip(Left) 11/04/2022 67 0.859 -0.7 -0.123 (-12.6% 0.015 (1.8%) 08/16/2020 65 0.844 -0.8 -0.139 (-14.1% -0.139 (-14.1% 08/10/2017 62 0.982 0.3 Total Hip(Right) 11/04/2022 67 0.855 -0.7 -0.060 (-6.6%) 0.045 (5.5%)* 08/16/2020 65 0.810 -1.1 -0.105 (-11.5% -0.105 (-11.5% 08/10/2017 62 0.915 -0.2 *Denotes significance at 95% confidence level, LSC for Total Hip = 0.027 g/cm2 Clinical Information Provided by Patient: Has used the following medications: Vitamin D Patient maximum height was 64 Menopause Age: 55 Does not regularly consume dairy products Drinks caffeinated beverages Onset of menses at age 11 Number of children 2 Impression: The patient has low bone mass, based on the Right Femoral Neck T-score. The patient has an estimated ten-year risk of hip fracture of 2.5% and an estimated ten-year risk of major fracture of 13%, based on the WHO FRAX algorithm. No significant bone loss was observed. Discussion: BONE DENSITY IS LOW AT ONE OR MORE SKELETAL SITES. This patient's lowest T-score is low at one or more skeletal sites. It meets the World Health Organization's (WHO) criteria for ?low bone mass? (T-score between -1.0 and -2.5).
== END 2022-11-04 13:02 | disposition home or self-care (01) ==
PROVIDERS: PCP Family Medicine; Visit Provider Nurse Practitioner
DX: M85.852 Other specified disorders of bone density and structure, left thigh (principal); M85.851 Other specified disorders of bone density and structure, right thigh
CPT/HCPCS: 77080

== ENCOUNTER 2023-02-12 11:04 | Outpatient (CLI) | payer MEDICARE, SELFPAY ==
[2023-02-12 13:21] LABS: Alanine Aminotransferase 33 U/L (6-35); Albumin Level 4.4 g/dL (3.5-5.1); Alkaline Phosphatase 48 U/L (38-126); Anion Gap 3 mmol/L (8-16); Aspartate Amino Transferase 40 U/L (14-36); Bilirubin,Total 0.6 mg/dL (0.2-1.3); Blood Urea Nitrogen 23 mg/dL (7-17); Calcium 9.6 mg/dL (8.4-10.2); Carbon Dioxide 33 mmol/L (22-30); Chloride 104 mmol/L (98-107); Estimated Glomerular Filt Rate > 60; Glucose 133 mg/dL (65-110); Potassium 4.4 mmol/L (3.4-5.0); Sodium 140 mmol/L (137-145)
[2023-02-12 22:20] LABS: Hemoglobin A1C 7.2 % (<5.7)
== END 2023-02-12 11:05 | disposition home or self-care (01) ==
LOC: ANHGOSHLAB 11:06
PROVIDERS: PCP Family Medicine; Visit Provider Family Medicine
DX: E11.9 Type 2 diabetes mellitus without complications (principal); I10 Essential (primary) hypertension; Z79.899 Other long term (current) drug therapy
CPT/HCPCS: 36415; 80053; 83036

== ENCOUNTER → 2023-02-12 12:45 | Outpatient (CLI) | payer MEDICARE, SELFPAY ==
--- NOTE | ~2023-02-12 | XR_ITS ---
EXAMINATION: XR lumbar spine min 4V DATE: 02/12/2023 13:03 INDICATION: Dorsalgia, unspecified. TECHNIQUE: 5 views of lumbar spine were obtained. COMPARISON: Lumbar spine radiographs 04/17/2021 FINDINGS: Bone alignment is normal. Vertebral body heights and intervertebral disc heights are normal . There are endplate osteophytes at multiple levels. There is multilevel facet joint osteoarthritis, severe bilaterally at L4-L5 and L5-S1. Surgical clips in the right upper quadrant are likely from cho lecystectomy. IMPRESSION: 1. Mild lumbar spondylosis. Reviewed, dictated and finalized at location A. IMPRESSION: 1. Mild lumbar spondylosis.
== END ==
PROVIDERS: PCP Family Medicine; Visit Provider Family Medicine
DX: M47.816 Spondylosis without myelopathy or radiculopathy, lumbar region (principal)
CPT/HCPCS: 72110

== ENCOUNTER 2023-04-17 08:43 | Outpatient (CLI) | payer MEDICARE, SELFPAY ==
--- NOTE | ~2023-04-17 | XR_ITS ---
EXAMINATION: XR abdomen/kub 1V DATE: 04/17/2023 09:09 INDICATION: Left ureteral stone. TECHNIQUE: A supine view of the abdomen on 2 radiographs was obtained. COMPARISON: CT abdomen and pelvis 11/04/2019, radiographs 03/04/2022 FINDINGS: There are no dilated loops of bowel. Surgical clips in the right upper quadrant are likely from cholecystectomy. There are two 1-2 mm stones in left kidney. There are phleboliths in the pelvis . IMPRESSION: 1. Small left kidney stones. Reviewed, dictated and finalized at location A.
== END 2023-04-17 08:44 | disposition home or self-care (01) ==
PROVIDERS: PCP Family Medicine; Visit Provider Urology
DX: N20.1 Calculus of ureter (principal); N20.0 Calculus of kidney
CPT/HCPCS: 74018

== ENCOUNTER 2023-08-28 12:45 | Outpatient (CLI) | payer MEDICARE, SELFPAY ==
--- NOTE | ~2023-08-28 | CT_ITS ---
EXAMINATION: CT brain wo con DATE: 08/28/2023 13:20 INDICATION: Dizziness, giddiness. Headache. TECHNIQUE: Computed tomography (CT) of the head was performed without intravenous contrast. The mA wa s adjusted according to patient size. Iterative reconstruction technique was employed. Exam dose: 60 5.33 mGy-cm total exam DLP. COMPARISON: None FINDINGS: Chronic infarcts of left basal ganglia and right parietal white matter. There is nonspecific diminished attenuation of the cerebral white matter, likely due to chronic small vessel ischemic changes. Bilateral carotid siphon internal carotid artery calcifications and vertebr al artery calcifications are noted. No intracranial mass lesion or hemorrhage, midline shift or mass effect. Normal ventricular size. No subdural or epidural hematoma. The orbital contents are unremarkable. The mastoid air cells and included paranasal sinuses are normally developed and aerated. No fracture or bone destruction of the cranial vault. IMPRESSION: Cerebral atherosclerosis and chronic small vessel ischemic changes of the cerebral white matter Bilateral chronic lacunar infarcts No acute intracranial finding Reviewed, dictated and finalized at Location A. Reviewed, dictated and finalized at location B. 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
== END 2023-08-28 12:46 | disposition home or self-care (01) ==
LOC: ANHIMG 12:46
PROVIDERS: PCP Family Medicine; Visit Provider Family Medicine
DX: R42 Dizziness and giddiness (principal); I67.2 Cerebral atherosclerosis
CPT/HCPCS: 70450

== ENCOUNTER 2023-11-23 09:49 | Outpatient (CLI) | payer MEDICARE, SELFPAY ==
--- NOTE | ~2023-11-23 | MM_ITS ---
EXAMINATION: MM screening preet BI w nataly HISTORY: Screening mammogram, family history of breast cancer in her mother. TECHNIQUE: Craniocaudal and mediolateral oblique 3-D tomosynthesis images were obtained and synthetic 2-D images were generated. CAD analysis was submitted and interpreted. COMPARISON: 10/15/2022, 09/30/2021, 08/16/2020, 08/16/2019 BREAST PARENCHYMAL COMPOSITION: There are scattered areas of fibroglandular density. FINDINGS: No suspicious mass, calcification, or architectural distortion are identified in either maggi ast to suggest malignancy. There has been no suspicious interval change. IMPRESSION: 1. No mammographic evidence of malignancy. 2. Recommend routine screening mammography in one year. BI-RADS Category 1: Negative Reviewed, dictated and finalized at location A. 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
== END 2023-11-23 09:50 | disposition home or self-care (01) ==
LOC: ANHIMG 09:51
PROVIDERS: PCP Family Medicine; Visit Provider Nurse Practitioner
DX: Z12.31 Encounter for screening mammogram for malignant neoplasm of breast (principal)
CPT/HCPCS: 77063; 77067

== ENCOUNTER 2024-01-30 13:11 | Emergency (ER) | payer MEDICARE, SELFPAY ==
[2024-01-30] VITALS (7 sets, daily range): BP systolic 113–136; BP diastolic 47–72; PULSE 66–87; RESP 15–18; TEMP 36.3–36.6; O2SAT 97–100
--- NOTE | ~2024-01-30 | CT_ITS ---
EXAMINATION: CTA abdomen pelvis DATE: 01/30/2024 14:39 INDICATION: Bilateral lower abdominal pain and melena. TECHNIQUE: Computed tomography (CT) of the abdomen and pelvis was performed with 100 mL Omnipaque-350 intravenous contrast, in the arterial phase. Automated exposure control and iterative reconstruction technique were employed. The dose-length product was 486.12 mGy-cm. COMPARISON: 11/04/2019, report only. FINDINGS: Lower thorax: Partially visualized mitral valve replacement. Liver: Diffusely low-density parenchyma. Biliary/Gallbladder: Gallbladder is absent. Prominent common bile duct, likely secondary to cholecyst ectomy. Pancreas: No mass or duct dilation. Spleen: Normal. Adrenals:No mass. Kidneys: No suspicious mass, obstructing stone, or hydronephrosis. Tiny subcentimeter hypodensities i n the left upper pole, too small to characterize but likely represent cysts. GI tract: Small hiatal hernia. No small or large bowel dilation. Multiple intraluminal hyperdensities in the stomach and descending colon which remain stable in size and morphology on delayed imaging an d likely represent ingested material. Normal appendix. Mesentery/Peritoneum: No ascites, mass, or free air. Retroperitoneum: No mass. Mild-moderate atherosclerotic abdominal aortic and/or arterial calcificatio ns. No severe stenosis, dissection, or aneurysm. Pelvis: Pelvic organs are within normal limits. Soft Tissues: Small, uncomplicated fat-containing umbilical hernia. Small, uncomplicated left and mod erate right fat-containing inguinal hernias. Bones: No acute osseous finding. IMPRESSION: Hepatic steatosis. Otherwise, no acute abdominal pelvic process detected. Specifically, no active intraluminal extravasation to suggest active GI bleeding. Reviewed, dictated and finalized at location K. IMPRESSION: Hepatic steatosis. Otherwise, no acute abdominal pelvic process detected. Specifically, no active intraluminal extravasation to suggest active GI bleedin g.
[2024-01-30] MEDS: SODIUM CHLORIDE 0.9% IV 1,000 ML 999 ML IV CONT (13:51)
[2024-01-30 14:05] LABS: Basophils Absolute Auto 0.1 K/mm3 (0.0-0.1); Basophils Percent Auto 0.8 % (0.2-1.2); Eosinophils Absolute Auto 0.1 K/mm3 (0-0.3); Eosinophils Percent Auto 2.3 % (0-4.4); Hematocrit 43.7 % (37.0-47.0); Immature Granulocyte Absolute 0.03 K/mm3 (0.00-0.031); Immature Granulocyte Percent A 0.5 % (0-0.5); Lymphocytes Absolute Auto 1.96 K/mm3 (0.9-3.2); Lymphocytes Percent Auto 32.6 % (18.3-44.2); Mean Corpuscular Hemoglobin 28.7 pg (26-34); Mean Corpuscular Volume 89.5 fl (80-100); Mean Platelet Volume 9.2 fl (7.4-10.4); Monocytes Absolute Auto 0.6 K/mm3 (0.1-0.6); Monocytes Percent Auto 9.5 % (2.6-8.5); Neutrophils Absolute Auto 3.3 K/mm3 (1.3-6.7); Neutrophils Percent Auto 54.3 % (45.5-73.1); Platelet Count Result 279 k/mm3 (150-375); Red Blood Count 4.88 M/mm3 (4.2-5.4); Red Cell Distribution Width 12.5 % (11.5-14.5)
[2024-01-30 14:10] LABS: Appearance Urine Cloudy (Clear); Bacteria Urine Rare /hpf; Bilirubin Urine Negative (Negative); Blood Urine Negative (Negative); Color Urine Yellow (Yellow); Glucose Urine UA 3+ mg/dL (Negative); Ketones Urine Negative (Negative); Leukocyte Esterase Ur 2+ LEU/UL (Negative); Nitrate Urine Negative (Negative); Protein Urine Negative (Negative); RBC Urine 0-2 /hpf (0-2); Squamous Epithelial Cell Urine Few /hpf (Few); Urobilinogen Urine 0.2 mg/dL (<2.0); WBC Urine >100 /hpf (0-3)
[2024-01-30 14:12] LABS: Specific Grav Ur 1.033 (1.001-1.035)
[2024-01-30 14:13] LABS: Add Urine Microscopic? YES
[2024-01-30 14:15] LABS: Alanine Aminotransferase 28 U/L (6-35); Albumin Level 4.2 g/dL (3.5-5.1); Alkaline Phosphatase 55 U/L (38-126); Anion Gap 8 mmol/L (4-12); Aspartate Amino Transferase 33 U/L (14-36); Bilirubin,Total 0.5 mg/dL (0.2-1.3); Blood Urea Nitrogen 27 mg/dL (7-17); Calcium 9.9 mg/dL (8.4-10.2); Carbon Dioxide 28 mmol/L (22-30); Chloride 105 mmol/L (98-107); Estimated CRCL calculation 40 ml/min; Estimated Glomerular Filt Rate 49; Glucose 157 mg/dL (65-110); Lactic Acid Reflex 2.1 mmol/L (0.7-2.0); Potassium 3.8 mmol/L (3.4-5.0); Sodium 141 mmol/L (137-145)
--- NOTE | 2024-01-30 14:17 | ED_ITS ---
HPI - Abdominal Pain General Chief Complaint: Abdominal Pain Stated Complaint: black stool, dizzy Time Seen by Provider: 01/30/24 13:22 History of Present Illness HPI narrative: This is a 68-year-old female, with history of diabetes and hypertension, who presents emergency department complaining of cramping lower abdominal pain, melena, lightheadedness and fatigue for the past day. The patient states her symptoms began with cramping lower abdominal pain rated 5/10 without radiation. She states she has had 2-3 bowel movements that appeared dark along with some streaks of bright red blood. She denies fevers, chills, vomiting, chest pain or shortness of breath. Related Data Home Medications Medication Instructions Recorded Confirmed estradiol 10 mcg vaginal tablet 10 mcg vaginal 2XW 07/31/20 09/07/23 (Vagifem) cholecalciferol (vitamin D3) 25 25 mcg PO DAILY 08/14/21 09/07/23 mcg (1,000 unit) capsule Lactobacillus rhamnosus-Bifidobac. cap PO 02/12/23 09/07/23 animalis 3 billion cell capsule (Caviar) vit B6-mag cit,ox-potassium cit 2 tablet PO BID 02/12/23 09/07/23 3.75 mg-45 mg-45 mg-49.5 mg tablet ER (Theralith XR) vit B6-mag cit,ox-potassium cit 2 tablet PO BID 08/24/23 09/07/23 3.75 mg-45 mg-45 mg-49.5 mg tablet ER (Theralith XR) Allergies Allergy/AdvReac Type Severity Reaction Status Date / Time clindamycin AdvReac Intermediate Other Verified 08/24/23 10:24 hydrochlorothiazide AdvReac Intermediate Dizziness Verified 08/24/23 10:24 Review of Systems Review of Systems: CONSTITUTIONAL: Fatigue Denies fever, chills, or sweats. ENT: Denies rhinorrhea, congestion, sore throat, or otalgia. CARDIOVASCULAR: Denies chest pain, palpitations, or edema. RESPIRATORY: Denies cough or dyspnea. GASTROINTESTINAL: Cramping abdominal pain, melena Denies nausea, vomiting, or diarrhea. GENITOURINARY: Denies dysuria or hematuria. SKIN: Denies rash or itching. MUSCULOSKELETAL: Denies back pain, joint pain, or myalgia. NEUROLOGIC: Lightheadedness Denies headache, numbness, or weakness. PSYCHIATRIC: Denies anxiety or depression. [facility] Past Medical History Medical History Anxiety Backache CKD (chronic kidney disease) stage 3, GFR 30-59 ml/min Dyslipidemia Essential (primary) hypertension History of colon polyps History of kidney stones Insomnia MVP (mitral valve prolapse) Osteopenia Postmenopausal symptoms Renal stone Symptomatic PVCs Type 2 diabetes mellitus without complication, without long-term current use of insulin Vitamin D deficiency Surgical History Surgical History History of cardiac cath (~06/20/14) History of cholecystectomy (~05/2016) History of dilatation and curettage (~03/2021) 03/2021 History of foot surgery (~1999) b/l for plantar fasciitis History of lithotripsy (~12/2020) 12/30 - right ESWL History of mitral valve repair (~07/2014) Status post hysteroscopic polypectomy (~2008) 2018 Family History Family History Father Family history of cardiovascular disease Family history of emphysema Mother Family history of cardiovascular disease Other Family history of malignant neoplasm Social History Social History Smoking status: Never smoker Second hand tobacco smoke exposure: No Alcohol intake: never Substance use: never Substance use type: does not use Lack of Transportation: No Lack of Food: Never True Current Housing: I Have Housing Concerned About Future Housing: No Difficulty Paying Gas/Electric Bills: No Difficulty Paying for Meds: No Currently Unemployed: No Education: High School Diploma/GED Living arrangements: with family Additional living arrangements comments: Occupation/Education: retired Gender identity (if verbalized by the patient): Female Sexual Orientation (if Verbalized by the Patient): Straight or Heterosexual Spiritual care concerns: No Agree to blood products: Yes Exam Narrative: GENERAL: Well-developed, well-nourished, and in no acute distress. HEAD: Normocephalic, atraumatic. EYES: PERRLA and EOMI. No noted conjunctival pallor ENT: Nares clear, no rhinorrhea or epistaxis. Mucous membranes moist. Oropharynx without tonsillar hypertrophy exudate or other lesions. CHEST: Clear to auscultation. No respiratory distress. No wheezes rales or rhonchi HEART: Regular rate and rhythm. No murmur heard. Normal peripheral pulses. ABDOMEN: Soft, mildly tender to palpation in the suprapubic region, without rebound or guarding, nondistended, normal active bowel sounds. EXTREMITIES: Normal range of motion. No edema. SKIN: Warm, dry, no rash. NEURO: Alert and oriented x3. No focal deficit. Moving all 4 limbs spontaneously PSYCH: Normal mood and affect. Course Course Emergency Course: 15:36 - CBC unremarkable with a hemoglobin of 14.0 appears to be the patient's baseline. Coags within normal limits. Chemistries demonstrate a mild creatinine elevation of 1.1 with a baseline of 0.9 lactic acid elevation of 2.1 but is otherwise unremarkable. UA demonstrates 2+ leukocyte esterase and white blood cells but is otherwise unremarkable. CT abdomen pelvis dear not concerning for acute intra-abdominal process or active bleeding. On re-evaluation, the patient's blood pressure has improved after IV fluids to the 130s over 60s. Will repeat H&H, if stable will discharge with recommendation for primary care and GI follow-up. 16:03 - Repeat hemoglobin 14.5. I suspect gastroenteritis as the cause of the patient's symptoms. Will discharge with recommendation for primary care follow- up. The patient has an appointment in 3 days. I discussed the findings and recommendations with the patient. Discussed return and emergency precautions including signs/symptoms of acute abdomen. The patient voiced understanding and agreement with the plan. All questions answered to her satisfaction. Vital Signs Vital signs: Vital Signs Temperature 97.3 F L 01/30/24 13:15 Pulse Rate 87 01/30/24 13:15 Respiratory Rate 16 01/30/24 13:15 Blood Pressure 113/47 L 01/30/24 13:15 Pulse Oximetry 100 01/30/24 13:15 Temperature 97.3 F L 01/30/24 13:15 Pulse Rate 77 01/30/24 15:24 Respiratory Rate 15 01/30/24 15:24 Blood Pressure 136/65 01/30/24 15:00 Pulse Oximetry 99 01/30/24 15:24 MDM - Abdominal Pain MDM Narrative Medical decision making narrative: Plan: Labs, imaging, pain control, IV fluids, reassess Differential Diagnosis Differential diagnosis: Likely abdominal pain, acute appendicitis, constipation, diverticulitis, gastroenteritis, pancreatitis, small bowel obstruction and other (GI bleed, malignancy, anemia, metabolic abnormality, coagulopathy, other) Lab Data 01/30/24 15:44 01/30/24 13:58 Labs: Lab Results 01/30/24 01/30/24 01/30/24 Range/Units 13:58 13:59 15:44 WBC 6.0 (4.5-10.0) K/mm3 RBC 4.88 (4.2-5.4) M/mm3 Hgb 14.0 14.5 (12.0-15.0) g/dL Hct 43.7 45.7 (37.0-47.0) % MCV 89.5 (80-100) fl MCH 28.7 (26-34) pg MCHC 32.0 (32-36) g/dl RDW 12.5 (11.5-14.5) % Plt Count 279 (150-375) k/mm3 MPV 9.2 (7.4-10.4) fl Immature Gran % (Auto) 0.5 (0-0.5) % Neut % (Auto) 54.3 (45.5-73.1) % Lymph % (Auto) 32.6 (18.3-44.2) % [place] % (Auto) 9.5 H (2.6-8.5) % Eos % (Auto) 2.3 (0-4.4) % Baso % (Auto) 0.8 (0.2-1.2) % Lymph # (Auto) 1.96 (0.9-3.2) K/mm3 [place] # (Auto) 0.6 (0.1-0.6) K/mm3 Eos # (Auto) 0.1 (0-0.3) K/mm3 Baso # (Auto) 0.1 (0.0-0.1) K/mm3 Abs Immat Gran (auto) 0.03 (0.00-0.031) K/mm3 Absolute Neuts (auto) 3.3 (1.3-6.7) K/mm3 Absolute Nucleated RBC 0.000 (0.0-0.012) K/mm3 Nucleated RBC % 0.0 (0.0-0.2) % PT 13.8 (11.1-14.7) Seconds INR 1.0 Sodium 141 (137-145) mmol/L Potassium 3.8 (3.4-5.0) mmol/L Chloride 105 (98-107) mmol/L Carbon Dioxide 28 (22-30) mmol/L Anion Gap 8 (4-12) mmol/L BUN 27 H (7-17) mg/dL Creatinine 1.10 H (0.7-1.0) mg/dL Estim Creat Clear Calc 40 ml/min Estimated GFR 49 L (59 - ) Glucose 157 H (65-110) mg/dL Lactic Acid 2.1 H (0.7-2.0) mmol/L Calcium 9.9 (8.4-10.2) mg/dL Total Bilirubin 0.5 (0.2-1.3) mg/dL AST 33 (14-36) U/L ALT 28 (6-35) U/L Alkaline Phosphatase 55 (38-126) U/L Total Protein 7.0 (6.3-8.2) g/dL Albumin 4.2 (3.5-5.1) g/dL Urine Color Yellow (Yellow) Urine Appearance Cloudy H (Clear) Urine pH 6.0 (5.0-9.0) Ur Specific [place] 1.033 (1.001-1.035) Urine Protein Negative (Negative) mg/dL Urine Glucose (UA) 3+ H (Negative) mg/dL Urine Ketones Negative (Negative) mg/dL Ur Blood (Man) Negative (Negative) Urine Nitrate Negative (Negative) Urine Bilirubin Negative (Negative) Urine Urobilinogen 0.2 (<2.0) mg/dL Leukocyte Esterase Rfl 2+ H (Negative) BJORN/UL Urine RBC 0-2 (0-2) /hpf Urine WBC >100 H (0-3) /hpf Ur Squamous Epith Cells Few (Few) /hpf Urine Bacteria Rare /hpf Urine Casts 3-5 Imaging Data Radiologist's impression: ITS Impressions Abdomen/Pelvis CTA 01/30/24 14:47 IMPRESSION: Hepatic steatosis. Otherwise, no acute abdominal pelvic process detected. Specifically, no active intraluminal extravasation to suggest active GI bleeding. Discharge Plan Discharge Clinical Impression: Abdominal pain, suprapubic, Lightheadedness, Gastroenteritis Patient Disposition: Home, Self-Care Condition: Stable Instructions: Antibiotic Form Additional Instructions: You were seen in the emergency department. I suspect your symptoms are related to gastroenteritis. The Kaopectate may have caused the change to black stools. I recommend following up with your primary care doctor. If you develop chest pain, shortness of breath, persistent vomiting, fevers with severe abdominal pain, or if you have other emergent concerns for life, limb, or eyesight, return to the emergency department. Patient Language: Jordanian Prescriptions: New prochlorperazine maleate 10 mg tablet 10 mg PO Q8H PRN (Reason: nausea and vomiting) Qty: 15 0RF No Action estradiol [Vagifem] 10 mcg tablet 10 mcg vaginal 2XW Theralith XR 3.75-45-45-49.5 mg tablet extended release 2 tablet PO BID cholecalciferol (vitamin D3) 25 mcg (1,000 unit) capsule 25 mcg PO DAILY Caviar 3 billion cell capsule PO Theralith XR 3.75-45-45-49.5 mg tablet extended release 2 tablet PO BID hydrochlorothiazide 25 mg tablet 25 mg PO DAILY Qty: 90 1RF (DME) lancets [Easy Comfort Lancets] 30 gauge misc See Rx Instructions .ROUTE .MEDSUPPLY Qty: 100 1RF Rx Instructions: As directed to test blood sugar QAM and PRN - Max TID (DME) lancets Misc 0 .ROUTE .MEDSUPPLY Qty: 200 1RF Rx Instructions: Use with glucometer to check blood sugar 1 to 3 times daily as needed (DME) blood sugar diagnostic Strip See Rx Instructions .Route Qty: 100 2RF Rx Instructions: Use to check blood sugar every morning and as needed with a max of TID (DME) Blood Glucose Test Strip See Rx Instructions .Route Qty: 100 5RF Rx Instructions: check blood sugars BID simvastatin 10 mg tablet 10 mg PO QHS Qty: 90 2RF Farxiga 10 mg tablet 10 mg PO DAILY Qty: 90 1RF (DME) Accu-Chek Mariann Plus test strp Strip See Rx Instructions .Route Qty: 100 2RF Rx Instructions: check blood sugars three times a day as directed. (DME) lancets [Accu-Chek Softclix Lancets] Misc See Rx Instructions .ROUTE .MEDSUPPLY Qty: 100 5RF Rx Instructions: Use 1 to check blood sugars three times daily glipizide 10 mg tablet extended release 24hr 10 mg PO BID Qty: 180 1RF metformin 500 mg tablet extended release 24 hr 500 mg PO BID Qty: 180 1RF escitalopram oxalate 20 mg tablet 20 mg PO QAM Qty: 90 1RF lisinopril 40 mg tablet 40 mg PO DAILY Qty: 90 1RF fenofibrate 160 mg tablet 160 mg PO DAILY Qty: 90 1RF trazodone 100 mg tablet 100 mg PO QPM Qty: 90 1RF Follow-up/Referrals: Tin Rocha MD [Primary Care Provider] - 02/02/24 Time of Disposition: 16:07
[2024-01-30 14:59] LABS: Prothrombin Time 13.8 Seconds (11.1-14.7)
[2024-01-30 15:49] LABS: Hematocrit 45.7 % (37.0-47.0); Hemoglobin 14.5 g/dL (12.0-15.0)
[2024-01-30 17:02] LABS: Reflex Lactic Acid Yes or No Add Lactic
== END 2024-01-30 16:28 | disposition home or self-care (01) ==
PROVIDERS: Emergency Provider Preventive Medicine Aerospace Medicine; PCP Family Medicine
DX: K52.9 Noninfective gastroenteritis and colitis, unspecified (principal); R42 Dizziness and giddiness; I12.9 Hypertensive chronic kidney disease with stage 1 through stage 4 chronic kidney disease, or unspecified chronic kidney disease; E11.22 Type 2 diabetes mellitus with diabetic chronic kidney disease; N18.30 Chronic kidney disease, stage 3 unspecified; E78.5 Hyperlipidemia, unspecified; E55.9 Vitamin D deficiency, unspecified; I34.1 Nonrheumatic mitral (valve) prolapse; M85.80 Other specified disorders of bone density and structure, unspecified site; Z86.010 Personal history of colon polyps; Z87.442 Personal history of urinary calculi; Z90.49 Acquired absence of other specified parts of digestive tract; K76.0 Fatty (change of) liver, not elsewhere classified; Z79.84 Long term (current) use of oral hypoglycemic drugs
CPT/HCPCS: 36415; 74174; 80053; 81001; 83605; 85014; 85018; 85025; 85610; 87086; 87088; 96360; 99284; J7030; Q9967

== ENCOUNTER 2024-04-22 10:31 | Outpatient (CLI) | payer MEDICARE, SELFPAY ==
--- NOTE | ~2024-04-22 | XR_ITS ---
XR abdomen/kub 1V 04/22/2024 10:52 INDICATION: Left ureteral stone TECHNIQUE: KUB COMPARISON: 04/17/2023 FINDINGS: Bowel gas pattern is normal. There is no evidence of free air, mass, organomegaly, ascites or obstruction. No abnormal calculi are seen. The bones appear intact. There are pelvic phlebolith s. There are cholecystectomy clips. IMPRESSION: 1: No acute abdominal abnormality identified. Reviewed, dictated and finalized at location B.
== END 2024-04-22 10:32 | disposition home or self-care (01) ==
PROVIDERS: PCP Family Medicine; Visit Provider Urology
DX: N20.1 Calculus of ureter (principal)
CPT/HCPCS: 74018

== ENCOUNTER 2024-05-20 14:49 | Outpatient (RCR) | payer MEDICARE, SELFPAY ==
--- NOTE | 2024-05-20 17:08 | PTOPEVAL1 ---
Assessment and note entered by Souleymane Michaels, PT Evaluation Information Assessment Status Evaluation ICD-10 Condition Codes (PT) Dizziness & Giddiness R42,BPPV H81.12 Onset April 2024 Subjective Information Reports that she has been having some dizziness marked worse when she gets up in the morning. She has had nausea from dizziness in the past. She has not had anything for the last 4 days but the latest bout was about 2 weeks ago which promoted her to make the appointment. She has been having trouble with pain in her left ear at this time. Denies any loss of sleep or waking up dizzy. Reported Pain Level Pain Score 0: Self Report Assessment PT Clinical Summary Patient was negative for BPPV at this time. Demonstrated no indications of vertigo or nystagmus with testing and eye tracking. Patient was placed on foam testing and was able to maintain balance with both eyes open and closed with no LOB or significant sway. No reports of dizziness with vestibular isolation at this time. Patient currently has follow up testing with audiology, CT scan, and has started antibiotic. I discussed with patient negative findings today and will place her on hold should symptoms rearise as she has had no issues for the past week. Plan of Care Interventions Neuro Re-education Treatment Frequency and Patient will follow up as needed 1x/week for next Duration 4 weeks to ensure absence and resolution of possible BPPV These treatments will address the objective and functional deficits as defined above. The patient will be advanced safely and appropriately in order for the patient to progress towards his/her prior level of function. Additional exercises will be introduced and as well as a comprehensive home exercise program upon discharge, if needed, ?to ensure carryover of functional gains achieved in the clinic. This treatment plan has been reviewed and agreement upon by the patient.
--- NOTE | 2024-06-17 15:14 | PTOPDC ---
Assessment and note entered by Souleymane Michaels, PT Evaluation Information Assessment Status Discharge - Pt Not Present ICD-10 Condition Codes (PT) Dizziness & Giddiness R42,BPPV H81.12 Onset April 2024 Subjective Information Called patient and spoke with her on the phone. States that she is doing much better and is not in need of follow up to therapy. No bouts of dizziness since evaluation. Assessment PT Clinical Summary Patient self discharge at this time with all symptoms resolved. No follow up needed.
== END 2024-06-17 15:40 | disposition home or self-care (01) ==
LOC: ANHGOSHPT 14:49
PROVIDERS: PCP Family Medicine; Visit Provider Nurse Practitioner Family
DX: R42 Dizziness and giddiness (principal)
CPT/HCPCS: 97112; 97161

== ENCOUNTER 2024-05-25 12:29 | Outpatient (CLI) | payer MEDICARE, SELFPAY ==
--- NOTE | ~2024-05-25 | CT_ITS ---
EXAMINATION: CT IAC/mastoids BI wo con DATE: 05/25/2024 12:52 INDICATION: Meniere's disease, unspecified ear. Chronic mastoiditis. Dizziness and giddiness. TECHNIQUE: Computed tomography (CT) of the temporal bones was performed without intravenous contrast. Automated exposure control and iterative reconstruction technique were employed. The dose-length pro duct was 255.78 mGy-cm. COMPARISON: Head CT 08/28/2023 FINDINGS: RIGHT TEMPORAL BONE: The internal auditory canal, cochlea, vestibule, semicircular canals, carotid canal, jugular bulb, ve stibular aqueduct, facial nerve course, ossicles, Prussak space, scutum, tympanic membrane, mastoid a ir cells, and external auditory canal are normal. LEFT TEMPORAL BONE: The internal auditory canal, cochlea, vestibule, semicircular canals, vestibular aqueduct, carotid ca nal, jugular bulb, facial nerve course, ossicles, Prussak space, scutum, tympanic membrane, external artery canal, and mastoid air cells are normal. IMPRESSION: 1. Normal temporal bones. Reviewed, dictated and finalized at location A. IMPRESSION: 1. Normal temporal bones.
== END 2024-05-25 12:30 | disposition home or self-care (01) ==
LOC: ANHIMG 12:31
PROVIDERS: PCP Family Medicine; Visit Provider Otolaryngology
DX: H90.6 Mixed conductive and sensorineural hearing loss, bilateral (principal); R42 Dizziness and giddiness
CPT/HCPCS: 70480

== ENCOUNTER 2024-05-27 10:48 | Outpatient (CLI) | payer MEDICARE, SELFPAY | END 2024-05-27 10:49 | disposition home or self-care (01) | LOC: ANHAUDASC 10:49 | PROVIDERS: PCP Family Medicine; Visit Provider Otolaryngology | DX: H90.6 Mixed conductive and sensorineural hearing loss, bilateral (principal); H81.09 Meniere's disease, unspecified ear | CPT/HCPCS: 92557; 92567 ==

== ENCOUNTER 2024-07-11 09:51 | Emergency (ER) | payer MEDICARE, SELFPAY ==
--- NOTE | ~2024-07-11 | XR_ITS ---
EXAMINATION: XR forearm LT 2V DATE: 07/11/2024 10:15 INDICATION: Left forearm pain. Fall. TECHNIQUE: 2 views of left forearm were obtained. COMPARISON: None. FINDINGS: Bone alignment is normal. No fracture. There is mild osteoarthritis of first carpometacarpa l joint. No elbow joint effusion. IMPRESSION: 1. No fracture. Reviewed, dictated and finalized at location A. IMPRESSION: 1. No fracture.
--- NOTE | 2024-07-11 09:55 | ED.DIZZY ---
HPI - Dizziness General Chief Complaint: Extremity Injury, Upper Stated Complaint: Bruised Left Arm/Dizzy Spells Time Seen by Provider: 07/11/24 09:54 Source: patient Mode of arrival: ambulatory Limitations: no limitations History of Present Illness HPI Narrative: Loretta is a 69-year-old female patient presenting to the clinic today with complaints of left arm pain/bruising. She reports she fell 10 days ago when she had a dizzy spell-ground level fall. She denies hitting her head or any loss of consciousness at that time. Has pain and swelling to the dorsal aspect of the mid forearm. Denies any dizziness at this time. Is being seen by PCP/neurologist for dizziness. She is requesting an x-ray today. Related Data Home Medications Medication Instructions Recorded Confirmed estradiol 10 mcg vaginal tablet 10 mcg vaginal 2XW 07/31/20 07/11/24 (Vagifem) cholecalciferol (vitamin D3) 25 25 mcg PO DAILY 08/14/21 07/11/24 mcg (1,000 unit) capsule Lactobacillus rhamnosus-Bifidobac. 1 cap PO DAILY 02/12/23 07/11/24 animalis 3 billion cell capsule ([employer]) Allergies Allergy/AdvReac Type Severity Reaction Status Date / Time Penicillins Allergy Severe c diff Verified 07/11/24 10:08 clindamycin AdvReac Intermediate Other Verified 07/11/24 10:08 Review of Systems Review of Systems: Pertinent positives per HPI. Patient denies any fever, chills, rash, headache, visual changes, dizziness, cough, runny nose, sore throat, shortness of breath, chest pain, palpitations, nausea, vomiting, diarrhea, constipation, abdominal pain, or any urinary issues. FOR[facility]LY [facility], [facility] Past Medical History Medical History Anxiety Backache CKD (chronic kidney disease) stage 3, GFR 30-59 ml/min Dyslipidemia Essential (primary) hypertension History of colon polyps History of kidney stones Insomnia MVP (mitral valve prolapse) Osteopenia Postmenopausal symptoms Renal stone Symptomatic PVCs Type 2 diabetes mellitus without complication, without long-term current use of insulin Vertigo Vitamin D deficiency Surgical History Surgical History History of cardiac cath (~06/20/14) History of cholecystectomy (~05/2016) History of dilatation and curettage (~03/2021) 03/2021 History of foot surgery (~1999) b/l for plantar fasciitis History of lithotripsy (~12/2020) 12/30 - right ESWL History of mitral valve repair (~07/2014) Status post hysteroscopic polypectomy (~2008) 2018 Family History Family History Father Family history of cardiovascular disease Family history of emphysema Mother Family history of cardiovascular disease Other Family history of malignant neoplasm Social History Social History Smoking status: Never smoker Second hand tobacco smoke exposure: No Alcohol intake: never Substance use: never Substance use type: does not use Lack of Transportation: No Lack of Food: Never True Current Housing: I Have Housing Concerned About Future Housing: No Difficulty Paying Gas/Electric Bills: No Difficulty Paying for Meds: No Currently Unemployed: No Education: High School Diploma/GED Living arrangements: with family Additional living arrangements comments: Occupation/Education: retired Gender identity (if verbalized by the patient): Female Sexual Orientation (if Verbalized by the Patient): Straight or Heterosexual Spiritual care concerns: No Agree to blood products: Yes Comments At the time of my signature, I reviewed and agree with the nursing past medical, surgical, social, and family history. There is no relevant family history pertinent to the patient complaint. Exam Narrative: General: Well-developed, well nourished, in no
[2024-07-11 10:05] VITALS: BP 124/68; PULSE 74; RESP 18; TEMP 36.2; O2SAT 100
== END 2024-07-11 10:24 | disposition home or self-care (01) ==
PROVIDERS: Emergency Provider Nurse Practitioner Family; PCP Family Medicine
DX: S50.12XA Contusion of left forearm, initial encounter (principal); W18.30XA Fall on same level, unspecified, initial encounter; N18.30 Chronic kidney disease, stage 3 unspecified; E78.5 Hyperlipidemia, unspecified; I12.9 Hypertensive chronic kidney disease with stage 1 through stage 4 chronic kidney disease, or unspecified chronic kidney disease; E55.9 Vitamin D deficiency, unspecified
CPT/HCPCS: 73090; 99213; G0463

== ENCOUNTER 2024-08-01 14:26 | Outpatient (CLI) | payer MEDICARE, SELFPAY ==
--- NOTE | ~2024-08-01 | MR_ITS ---
EXAMINATION: MR brain/brain stem wo/w con DATE: 08/01/2024 15:25 INDICATION: Dizziness and giddiness TECHNIQUE: Magnetic resonance imaging (MRI) of the brain and brainstem was performed without and with 14 mL Multihance intravenous contrast. Sequences included sagittal and axial T1-weighted SE, axial d iffusion-weighted FS SE, axial 3D SWAN, axial T2-weighted FLAIR, and axial T2-weighted FSE. Postcontr ast axial and coronal T1-weighted SE was obtained. Apparent diffusion coefficient (ADC) maps were cre ated. COMPARISON: CT dated 08/28/2023 FINDINGS: There are no areas of restricted diffusion to suggest acute infarction. Unchanged small old lacunar i nfarct at the bilateral caudate nuclei and a few in the right parietal lobe. There are a few tiny foc i of susceptibility artifact on susceptibility weighted imaging in the and right frontal lobe and rig ht cerebellar hemisphere consistent with chronic blood products the setting of chronic microhemorrhag e which could be due to either hypertension or amyloid angiopathy. No abnormal intracranial mass lesi on. There are scattered areas of nonspecific increased T2-weighted signal intensity in the cerebral w benny matter, predominantly involving the deep and periventricular white matter. There are no intrapar enchymal signal abnormalities seen on the other pulse sequences. The ventricles are symmetric and nor mal in size. There are no abnormal extra-axial fluid collections. Flow voids are seen in the cerebral arteries on the T2-weighted sequences consistent with their expected patency. Mild mucosal thickenin g the bilateral ethmoid and right frontal sinuses. Visualized orbits and soft tissues are unremarkabl e. There are no areas of abnormal enhancement on the post contrast images. IMPRESSION: 1. Small old lacunar infarcts at the bilateral caudate nuclei and in the right parietal lobe. No acut e intracranial process. 2. A few small foci of susceptibility artifact in the right frontal lobe and right cerebellum consist ent with chronic microhemorrhage such as in the setting of hypertension or amyloid angiopathy. Reviewed, dictated and finalized at location A. IMPRESSION: 1. Small old lacunar infarcts at the bilateral caudate nuclei and in the right parietal lobe. No acute intracranial process. 2. A few small foci of susceptibility artifact in the right frontal lobe and ri ght cerebellum consistent with chronic microhemorrhage such as in the setting o f hypertension or amyloid angiopathy.
== END 2024-08-01 14:27 | disposition home or self-care (01) ==
PROVIDERS: PCP Family Medicine; Visit Provider Family Medicine
DX: R42 Dizziness and giddiness (principal); Z86.73 Personal history of transient ischemic attack (TIA), and cerebral infarction without residual deficits
CPT/HCPCS: 70553; A9577

== ENCOUNTER 2024-12-05 13:46 | Outpatient (CLI) | payer MEDICARE, SELFPAY ==
--- NOTE | ~2024-12-05 | DEXA_ITS ---
Bone Density Report Name: RADHA SEGURA Age: 69 Sex: Female Ethnicity: White Date of : 1955 Indication: postmenopausal; screening for osteoporosis; height loss; Referring Provider: HOSSEIN, MITCHELL Study: Bone densitometry was performed. Exam Date: December 05, 2024 Accession number: [id number] Bone Density: Region BMD T-score Z-score Classification AP Spine(L1-L4) 1.050 0.0 2.2 Normal Femoral Neck (Left) 0.648 -1.8 0.0 Osteopenia Total Hip (Left) 0.881 -0.5 1.0 Normal Femoral Neck (Right) 0.603 -2.2 -0.4 Osteopenia Total Hip (Right) 0.834 -0.9 0.6 Normal Total Hip Mean 0.857 -0.7 0.8 Normal World Health Organization criteria for BMD impression classify patients as: Normal (T-score at or above -1.0), Osteopenia (T-score between -1.0 and -2.5), or Osteoporosis (T-score at or below -2.5). 10-year Fracture Risk(1): Major Osteoporotic Fracture 13% Hip Fracture 2.7% Reported Risk Factors: [place] (), Neck BMD=0.603, BMI=26.8 (1) FRAX(R) Version 3.08. Fracture probability calculated for an untreated patient. Fracture probability may be lower if the patient has received treatment. Previous Exams: Region Exam Age BMD T-score BMD Change BMD Change Date g/cm2 vs Baseline vs Previous AP Spine (L1-L4) 12/05/2024 69 1.050 0.0 -0.021 (-2.0%) 0.018 (1.7%) 11/04/2022 67 1.032 -0.1 -0.039 (-3.6%) 0.018 (1.8%) 08/16/2020 65 1.014 -0.3 -0.057 (-5.3%) -0.057 (-5.3%) 08/10/2017 62 1.071 0.2 Total Hip(Left) 12/05/2024 69 0.881 -0.5 -0.102 (-10.3% 0.022 (2.5%) 11/04/2022 67 0.859 -0.7 -0.123 (-12.6% 0.015 (1.8%) 08/16/2020 65 0.844 -0.8 -0.139 (-14.1% -0.139 (-14.1% 08/10/2017 62 0.982 0.3 Total Hip(Right) 12/05/2024 69 0.834 -0.9 -0.081 (-8.8%) -0.021 (-2.4%) 11/04/2022 67 0.855 -0.7 -0.060 (-6.6%) 0.045 (5.5%)* 08/16/2020 65 0.810 -1.1 -0.105 (-11.5% -0.105 (-11.5% 08/10/2017 62 0.915 -0.2 *Denotes significance at 95% confidence level, LSC for AP Spine = 0.022 g/cm2, LSC for Total Hip = 0.027 g/cm2 Clinical Information Provided by Patient: Has used the following medications: Vitamin D Patient maximum height was 64 Menopause Age: 55 Does not regularly consume dairy products Drinks caffeinated beverages Onset of menses at age 11 Number of children 2 Impression: The patient has low bone mass, based on the Right Femoral Neck T-score. The patient has an estimated ten-year risk of hip fracture of 2.7% and an estimated ten-year risk of major fracture of 13%, based on the WHO FRAX algorithm. No significant bone loss was observed. Discussion: BONE DENSITY IS LOW AT ONE OR MORE SKELETAL SITES. This patient's lowest T-score is low at one or more skeletal sites. It meets the World Health Organization's (WHO) criteria for ?low bone mass? (T-score between -1.0 and -2.5). The patient's 10-year risk of fracture as calculated by FRAX is less than the threshold where pharmacological therapy is recommended by the National Osteoporosis Foundation (NOF). However, all treatment decisions require clinical judgment and consideration of individual patient factors, including patient preferences, comorbidities, previous drug use, risk factors not captured in the FRAX model (e.g., frailty, falls, vitamin D deficiency, increased bone turnover, interval significant decline in bone density) and possible under or overestimation of fracture risk by FRAX. The patient should follow a healthful lifestyle (good nutrition with adequate calcium and vitamin D, and appropriate weight-bearing exercise). Follow-Up: Consider repeating this study in 2 to 3 years to reassess this patient's status, or sooner if there is some new clinical indication. Reported by: PRICILLA on 12/05/2024 2:18:00 PM. Reviewed, dictated and finalized at location AAsher SEWELL
--- NOTE | ~2024-12-05 | MM_ITS ---
EXAMINATION: MM screening preet BI w nataly HISTORY: Screening mammogram, family history of breast cancer in her mother. TECHNIQUE: Craniocaudal and mediolateral oblique 3-D tomosynthesis images were obtained and synthetic 2-D images were generated. CAD analysis was submitted and interpreted. COMPARISON: 11/23/2023, 10/15/2022, 09/30/2021 BREAST PARENCHYMAL COMPOSITION:Not Dense. There are scattered areas of fibroglandular density. FINDINGS: No suspicious mass, calcification, or architectural distortion are identified in either maggi ast to suggest malignancy. There has been no suspicious interval change. IMPRESSION: No mammographic evidence of malignancy. Recommend routine screening mammography in one year. BI-RADS Category 1: Negative Reviewed, dictated and finalized at location . ONOPHYSICIST
--- OUTSIDE RECORDS SUMMARY | 2024-12-05 15:55 | XMS_ITS | Clinical Summary ---
Author Organization [facility] Address [address], [address] [address] Phone Care Team Providers Care Adjunct Professor Of Law Name Role Phone Unavailable Primary Care Provider Unavailabl e Social History Tobacco Use Types Packs/Day Years Used Date Smoking Tobacco: Never Assessed Comments Unknown Sex and Gender Information Value Date Recorded Sex Assigned at Not on file Legal Sex Female 5:40 PM CDT Gender Identity Not on file Sexual Orientation Not on file Plan of Treatment Health Maintenance Due Date Last Done Comments DEXA Bone Density 1955 Hepatitis C Virus (HCV) Screening 1955 TdaP Immunization 1955 Colonoscopy 1999 Colorectal Cancer Screening 1999 Cologuard 2004 Immunochemical Fecal Occult Blood 2004 Mammogram 2004 Pneumococcal Immunization (5 0+ years) (1 of 1 - PCV) 2004 Zoster Immunization (1 of 2) 2004 Influenza Immunization (#1) 2024 SARS-COV-2 Immunization ( - 2023-25 season) 2024 Respiratory Syncytial Virus (RSV) Immunization (Adult) (1 - 1-dose 75+ series) 2029 Hepatitis B Immunization Aged Out No longer eligible based on patient's age to complete this topic Meningococcal Immunization (ACWY) Aged Out No longer eligible based on patient's age to complete this topic Rotavirus Immunization Aged Out No lo nger eligible based on patient's age to complete this topic Insurance MEDICARE [facility]
--- OUTSIDE RECORDS SUMMARY | 2024-12-05 15:55 | XMS_ITS | Clinical Summary ---
Author Organization [facility] [place] [address] Address [address] [place] [address] Care Team Providers Care Residential Sales Name Role Phone Vikas Rocha MD Primary Care Provider Allergies No known active allergies Medications metFORMIN (GLUCOPHAGE) 500 mg tablet Take 1 tablet (500 mg total) by mouth 2 (two) times a day with meals Active lisinopril (PRINIVIL,ZESTR IL) 40 mg tablet Take 1 tablet (40 mg total) by mouth daily Active escitalopram (LEXAPRO) 20 mg tablet Take 1 tablet (20 mg total) by mouth daily Active fenofibrate (TRIGLIDE) 160 mg tablet Take 1 tablet (160 mg total) by mouth daily Active estradiol (VAGIFEM) 10 mcg tablet 1 tablet (10 mcg total) daily Take 1 tablet po twice weekly Active vit B6-mag cit,oxid-potass cit 3.75-45-45-49.5 mg tablet extended release Take by mouth. Take 4 tablets po daily Active traZODone (DESYREL) 100 mg tablet Take 75 mg by mouth nightly. Active glipiZIDE (GLUCOTROL) 5 mg tabletIndicatio ns:type 2 diabetes mellitus Take 2 tablets (10 mg total) by mouth 2 (two) times a day before breakfast and lunch Active simvastatin (ZOCOR) 10 mg tablet Take 1 tablet (10 mg total) by mouth nightly Active Farxiga 10 mg tablet Take 1 tablet (10 mg total) by mouth daily 2 Active aspirin 81 mg enteric coated tablet Take 1 tablet (81 mg total) by mouth daily Active hydroCHLOROthia zide (HYDRODIURIL) 25 mg tablet Take 1 tablet (25 mg total) by mouth daily Active cholecalciferol (VITAMIN D-3) 1,000 unit Take 1 tablet/capsule (1,000 Units total) by mouth daily Active Januvia 100 mg tablet Take 1 tablet (100 mg total) by mouth daily 4 Active Active Problems Problem Noted Date Diagnosed Date S/P mitral valve repair 08/04/2017 Exertional dyspnea 07/15/2017 Patient encounter status 07/27/2014 Overview (01/16/2017): Surgery follow-up examination Heart valve disease 06/08/2014 Overview (01/16/2017): Valvular disease Encounters Date Type Department Care Team Description 09/07/2024 Orders Only [facility] [address] [place] [address] Provider, MD Patricia from Last 3 Months Medical History Medical History Date Comments Hx Other Medical palpitations; C omments: [facility] 06/08/2014 - Hypertension Hypertension Hx Other Medical Irregular heart rate; Comments: [facility] 06/08/2014 - Diabetes mellitus (HCC) Diabetes mellitus; Comments: [facility] 06/08/2014 - Anxiety disorder Anxiety Family History Medical History Relation Name Comments Heart disease Father heart disease; Cancer Mother Cancer, unknown ; Relation Name Status Comments Father Mother Social History Tobacco Use Types Packs/Day Years Used Date Smoking Tobacco: Never Smokeless Tobacco: Never Tobacco Cessation:Counseling Given: Not Answered Alcohol Use Standard Drinks/Week Comments No 0 (1 standard drink = 0.6 oz pur e alcohol) Comments Unknown Sex and Gender Information Value Date Recorded Sex Assigned at Not on file Legal Sex Female 7:46 PM HAT CONE INSPECTOR Gender Identity Not on file Sexual Orientation Not on file Obstetrics History Last Filed Vital Signs Vital Sign Reading Time Taken Comments Blood Pressure 132/82 09/01/2024 9:59 AM HAT CONE INSPECTOR Pulse 80 09/01/2024 9:59 AM HAT CONE INSPECTOR Temperature - - Respiratory Rate 18 08/07/2020 11:12 AM CDT Oxygen Saturation 98% 09/01/2024 9:59 AM HAT CONE INSPECTOR Inhaled Oxygen Concentration - - Weight 68 kg (150 lb) 09/01/2024 9:59 AM HAT CONE INSPECTOR Height 162.6 cm (5' 4 ) 09/01/2024 9:59 AM HAT CONE INSPECTOR Body Mass Index 25.75 09/01/2024 9:59 AM HAT CONE INSPECTOR Plan of Treatment Health Maintenance Due Date Last Done Comments Breast Cancer Screening-Mammogram 1954 Colon Cancer Screening-Colonoscopy 1954 Depression Screening 1954 Fall Risk Assessment 1954 Hepatitis C Screening 1954 Osteoporosis Screening-Bone Density Scan 1954 Hepatitis B Screening 1972 Pneumococcal vaccine 65+ (1 of 1 - PCV) 2004 Zoster Vaccine (2 of 3) 12/04/2015 10/09/2015 Well Visit 65+ 2019 DTaP/Tdap/Td Vaccine (2 - Td or Tdap) 03/16/2022 03/16/2012 Influenza Vaccine (#1) 2024 9, 07/08/2018, 07/02/2017, Additional history exists Insurance MEDICARE [facility] MEDICARE [facility] Care Teams Residential Sales Relationship Specialty Start Date End Date Vikas Rocha MD PCP - General Family Practice 07/15/17
--- OUTSIDE RECORDS SUMMARY | 2024-12-05 15:55 | XMS_ITS | Continuity of Care Document ---
Author Organization [facility] Address [id number] [place] [address] [address] [place] [address] Phone Care Team Providers Care Range Ecologist Name Role Phone Argenis Puga Unavailable Unavailable Advance Directives Directive Yes / No Effective Date File Name No Information Encounters Encounter Description Practice Location Reason(s) For Visit Diagnoses Date Provider Providers Copied on Encounter [facility], [address], [place], [place], [id number], [place] tel:[phone] [facility] No Information [phone] Vivien More. [address] , [address], [place], [address], [place]. tel:[phone] Family History Family Member Type Diagnosis Age [...]
--- OUTSIDE RECORDS SUMMARY | 2024-12-05 15:55 | XMS_ITS | Referral Summary ---
Author Organization [facility] [place] [address] [facility] [address] [address] Address [address] [place] [address] Care Team Providers Care Swatch Paster Name Role Phone Vikas Rocha MD Primary Care Provider Encounters Date Type Department Care Team Description 09/07/[address] [facility] Cardiology [address] [place] [address] Provider, MD Patricia from Last 3 Months Allergies No known active allergies Medications metFORMIN [...] valve disease 06/08/2014 Overview (01/16/2017): Valvular disease Social History Tobacco Use Types Packs/Day Years Used Date Smoking Tobacco: Never Smokeless Tobacco: Never Tobacco Cessation:Counseling Given: Not Answered Alcohol Use Standard Drinks/Week Comments No 0 (1 standard drink = 0.6 oz pur e alcohol) Comments Unknown Sex and Gender Information Value Date Recorded Sex Assigned at Not on file Legal Sex Female 7:46 PM DIESEL ENGINE I PIPE FITTER Gender Identity Not on file Sexual Orientation Not on file Last Filed Vital Signs Vital Sign Reading Time Taken Comments Blood Pressure 132/82 09/01/2024 9:59 AM DIESEL ENGINE I PIPE FITTER Pulse 80 09/01/2024 9:59 AM DIESEL ENGINE I PIPE FITTER Temperature - - Respiratory Rate 18 08/07/2020 11:12 AM CDT Oxygen Saturation 98% 09/01/2024 9:59 AM DIESEL ENGINE I PIPE FITTER Inhaled Oxygen Concentration - - Weight 68 kg (150 lb) 09/01/2024 9:59 AM DIESEL ENGINE I PIPE FITTER Height 162.6 cm (5' 4 ) 09/01/2024 9:59 AM DIESEL ENGINE I PIPE FITTER Body Mass Index 25.75 09/01/2024 9:59 AM DIESEL ENGINE I PIPE FITTER Plan of Treatment Not on file Insurance MEDICARE [facility] MEDICARE [facility] Care Teams Swatch Paster Relationship Specialty Start Date End Date Vikas Rocha MD PCP - General Family Practice 07/15/17
== END 2024-12-05 13:47 | disposition home or self-care (01) ==
LOC: ANHIMG 13:48
PROVIDERS: PCP Family Medicine; Visit Provider Nurse Practitioner
DX: Z12.31 Encounter for screening mammogram for malignant neoplasm of breast (principal); M85.89 Other specified disorders of bone density and structure, multiple sites; Z78.0 Asymptomatic menopausal state
CPT/HCPCS: 77063; 77067; 77080

== ENCOUNTER 2025-03-16 00:18 | Day surgery (SDC) | payer MEDICARE, SELFPAY ==
[2025-03-07 14:00] VITALS: BMI 25.7
--- OUTSIDE RECORDS SUMMARY | 2025-03-16 00:20 | XMS_ITS | Referral Summary ---
Author Organization [facility] [place] [address] Address [address] [place] [address] Care Team Providers Care Dipper And Drier Name Role Phone Vikas Rocha MD Primary [...] on file Legal Sex Female 7:46 PM YARD CRANE OPERATOR Gender Identity Not on file Sexual Orientation Not on file Last Filed Vital Signs Vital Sign Reading Time Taken Comments Blood Pressure 132/82 09/01/2024 9:59 AM YARD CRANE OPERATOR Pulse 80 09/01/2024 9:59 AM YARD CRANE OPERATOR Temperature - - Respiratory Rate 18 08/07/2020 11:12 AM CDT Oxygen Saturation 98% 09/01/2024 9:59 AM YARD CRANE OPERATOR Inhaled Oxygen Concentration - - Weight 68 kg (150 lb) 09/01/2024 9:59 AM YARD CRANE OPERATOR Height 162.6 cm (5' 4) 09/01/2024 9:59 AM YARD CRANE OPERATOR Body Mass Index 25.75 09/01/2024 9:59 AM YARD CRANE OPERATOR Plan of Treatment Not on file Insurance MEDICARE [facility] MEDICARE [facility] Care Teams Dipper And Drier Relationship Specialty Start Date End Date Vikas Rocha MD PCP - General Family Practice 07/15/17
--- OUTSIDE RECORDS SUMMARY | 2025-03-16 00:21 | XMS_ITS | Clinical Summary ---
Author Organization [facility] [place] [address] Address [address] [place] [address] Care Team Providers Care Tea Tree Farmer Name Role Phone Vikas Rocha MD Primary [...] valve disease 06/08/2014 Overview (01/16/2017): Valvular disease Medical History Medical History Date Comments Hx Other Medical palpitations; C omments: [facility] 06/08/2014 - Hypertension Hypertension Hx Other Medical Irregular heart rate; Comments: [facility] 06/08/2014 - Diabetes mellitus (HCC) Diabetes mellitus; Comments: [facility] 06/08/2014 - Anxiety disorder Anxiety Family History [...] on file Legal Sex Female 7:46 PM PATIENT MANAGER Gender Identity Not on file Sexual Orientation Not on file Obstetrics History Last Filed Vital Signs Vital Sign Reading Time Taken Comments Blood Pressure 132/82 09/01/2024 9:59 AM PATIENT MANAGER Pulse 80 09/01/2024 9:59 AM PATIENT MANAGER Temperature - - Respiratory Rate 18 08/07/2020 11:12 AM CDT Oxygen Saturation 98% 09/01/2024 9:59 AM PATIENT MANAGER Inhaled Oxygen Concentration - - Weight 68 kg (150 lb) 09/01/2024 9:59 AM PATIENT MANAGER Height 162.6 cm (5' 4) 09/01/2024 9:59 AM PATIENT MANAGER Body Mass Index 25.75 09/01/2024 9:59 AM PATIENT MANAGER Plan of Treatment Health Maintenance Due Date [...] Td or Tdap) 03/16/2022 03/16/2012 Influenza Vaccine (Season Ended) 2025 07/06/2019, 07/08/2018, 07/02/2017, Additional history exists Insurance MEDICARE [facility] [place] [address] [employer] Care Teams Tea Tree Farmer Relationship Specialty Start Date End Date Vikas Rocha MD PCP - General Family Practice 07/15/17
--- OUTSIDE RECORDS SUMMARY | 2025-03-16 00:21 | XMS_ITS | Continuity of Care Document ---
Author Organization [facility] Address [address] [place] [address] [address] [place] [address] Phone Care Team Providers Care Counter Stitcher Name Role Phone Argenis Puga Unavailable Unavailable Advance Directives Directive Yes / No Effective Date File Name No Information Encounters Encounter Description Practice Location Reason(s) For Visit Diagnoses Date Provider Providers Copied on Encounter [facility], [address], [place], [place], [id number], [place] tel:[phone] [facility] No Information [phone] Vviien More. [address] , [address], [place], [address], [place]. tel:[phone] Family History Family Member Type Diagnosis Age At Onset No Information Payers Payer name Insurance type Covered democrat ID Authoriza tion(s) No Information Social History [...]
--- OUTSIDE RECORDS SUMMARY | 2025-03-16 00:21 | XMS_ITS | Clinical Summary ---
Author Organization [facility] Address [address], [address] [address] Phone Care Team Providers Care Purchasing Assistant Name Role Phone Unavailable Primary Care Provider [...] age to complete this topic Insurance MEDICARE [facility]
[2025-03-16 07:52] VITALS: BP 116/46; PULSE 71; RESP 16; TEMP 36.3; O2SAT 100
[2025-03-16 08:12] LABS: Glucose Point of Care 117 mg/dl (65-105)
--- NOTE | 2025-03-16 08:29 | P.HP_ITS ---
H&P: HPI History of Present Illness Date/Time: 03/16/25 08:29 Chief Complaint: Screening for colorectal cancer Narrative: This is a 69-year-old woman who presents for colonoscopy. She was recently seen for hemorrhoids with rectal bleeding and will be undergoing a hemorrhoid procedure. She had a colonoscopy but it has been over 5 years. She does not recall if polyps were removed at that time. She denies any family history of colon cancer. Review of Systems Review of Systems: All systems reviewed & are unremarkable except as noted in HPI and below Constitutional: Constitutional: Denies chills, Denies fever(s), Denies headache(s) and Denies weight loss Eyes: Eyes: Denies change in vision ENT: Denies dizziness, Denies headache(s), Denies neck mass and Denies throat swelling Cardiovascular: Cardiovascular: Denies chest pain, Denies lightheadedness and Denies dyspnea Respiratory: Respiratory: Denies cough, Denies dyspnea and Denies wheezing Gastrointestinal: Gastrointestinal: Denies abdominal pain, Denies change in bowel habits, Denies nausea and Denies vomiting Genitourinary: Genitourinary: Denies hematuria and Denies dysuria Musculoskeletal: Musculoskeletal: Reports as per HPI Integumentary/Breasts: Skin/Breast: Reports as per HPI Neurologic: Denies dizziness and Denies headache(s) Allergic/Immunologic: Allergic/Immunologic: Denies throat swelling and Denies wheezing [facility] Past Medical History Medical History (Updated 03/16/25 @ 08:30 by Gio Torres DO) History of colon polyps Herpes zoster dermatitis (~07/2024) left upper extremity History of stroke 08/04: MRI of the brain shows Small old lacunar infarcts at the bilateral caudate nuclei and in the right parietal lobe. Osteopenia History of kidney stones Postmenopausal symptoms CKD (chronic kidney disease) stage 3, GFR 30-59 ml/min MVP (mitral valve prolapse) Symptomatic PVCs Vitamin D deficiency Type 2 diabetes mellitus without complication, without long-term current use of insulin Dyslipidemia Essential (primary) hypertension Anxiety Insomnia Backache Surgical History Surgical History History of lithotripsy (~12/2020) 12/30 - right ESWL History of dilatation and curettage (~03/2021) 03/2021 Status post hysteroscopic polypectomy (~2008) 2018 History of foot surgery (~1999) b/l for plantar fasciitis History of cardiac cath (~06/20/14) History of cholecystectomy (~05/2016) History of mitral valve repair (~07/2014) Family History Family History (Updated 03/07/25 @ 10:49 by Racheal Carroll MA) Father Family history of cardiovascular disease Family history of emphysema Mother Family history of cardiovascular disease Breast cancer Other Family history of malignant neoplasm Heart disease Social History Social History Smoking status: Never smoker Second hand tobacco smoke exposure: No Alcohol intake: never Substance use: never Substance use type: does not use Lack of Transportation: No Lack of Food: Never True Current Housing: I Have Housing Concerned About Future Housing: No Difficulty Paying Gas/Electric Bills: No Difficulty Paying for Meds: No Currently Unemployed: No Education: High School Diploma/GED Living arrangements: with family Additional living arrangements comments: Occupation/Education: retired Gender identity (if verbalized by the patient): Female Sexual Orientation (if Verbalized by the Patient): Straight or Heterosexual Spiritual care concerns: No Agree to blood products: Yes Meds Home Medications and Allergies Home Medications ?Medication ?Instructions ?Recorded ?Confirmed ?Type lancets 30 gauge (Easy Comfort #100 ea 02/06/20 03/07/25 Rx Lancets) estradiol 10 mcg vaginal tablet 10 mcg vaginal 2XW 07/31/20 03/16/25 History (Vagifem) cholecalciferol (vitamin D3) 25 25 mcg PO DAILY 08/14/21 03/16/25 History mcg (1,000 unit) capsule blood sugar diagnostic (Blood #100 ea 07/28/22 03/07/25 Rx Glucose Test strips) Lactobacillus rhamnosus-Bifidobac. 1 cap PO DAILY 02/12/23 03/16/25 History animalis 3 billion cell capsule (Blink for iPhone and Android) lancets (Accu-Chek Softclix #100 ea 06/27/24 03/07/25 Rx Lancets) aspirin 81 mg tablet,delayed 81 mg PO DAILY 08/25/24 03/16/25 History release (Adult Aspirin Regimen) vit B6-mag cit,ox-potassium cit 2 tablet PO BID 08/25/24 03/16/25 History 3.75 mg-45 mg-45 mg-49.5 mg tablet ER (Theralith XR) glipizide 10 mg tablet, extended 10 mg PO BID #180 tabs 10/10/24 03/16/25 Rx release 24 hr metformin 500 mg tablet,extended 500 mg PO BID #180 tabs 10/10/24 03/16/25 Rx release 24 hr escitalopram oxalate 20 mg tablet 20 mg PO QAM #90 tabs 10/20/24 03/16/25 Rx sitagliptin phosphate 100 mg 100 mg PO DAILY #30 tabs 10/27/24 03/16/25 Rx tablet (Januvia) fenofibrate 160 mg tablet 160 mg PO DAILY #90 tabs 11/24/24 03/16/25 Rx lisinopril 40 mg tablet 40 mg PO DAILY #90 tabs 11/29/24 03/16/25 Rx simvastatin 10 mg tablet 10 mg PO QHS #90 tabs 11/29/24 03/16/25 Rx hydrocortisone 2.5 % topical cream 1 applic RECTAL DAILY PRN 12/02/24 03/07/25 Rx with perineal applicator hemorrhoids #30 grams (Procto-Med HC) hydrocortisone acetate 25 mg 25 mg RECTAL .q6 PRN hemorrhoids 12/02/24 03/07/25 Rx rectal suppository (Anusol-HC) #24 ea blood sugar diagnostic (Accu-Chek #100 ea 12/22/24 03/07/25 Rx Mariann Plus test strips) trazodone 100 mg tablet 100 mg PO QPM #90 tabs 01/03/25 03/16/25 Rx hydrochlorothiazide 25 mg tablet 25 mg PO DAILY #90 tabs 02/20/25 03/16/25 Rx dapagliflozin propanediol 10 mg 10 mg PO DAILY 02/23/25 03/16/25 History tablet (Farxiga) Allergies Allergy/AdvReac Type Severity Reaction Status Date / Time Penicillins Allergy Severe c diff Verified 03/16/25 07:49 clindamycin AdvReac Intermediate Other Verified 03/16/25 07:49 Vital Signs Vital Signs - 24 hr 03/16/25 07:52 Temperature 97.3 F L Pulse Rate 71 Respiratory Rate 16 Blood Pressure 116/46 L Pulse Oximetry 100 Oxygen Delivery Room Air Exam Const: General: no acute distress and alert Orientation/consciousness: patient oriented x3 HENMT: Head: normocephalic and atraumatic Ears: hearing grossly normal bilaterally Face/Nose/Sinus: Normal nares present Mouth: Yes Normal oral and palatal mucosa present Eyes: Periorbital: periorbital findings normal Sclera: sclerae normal EOM: EOMs intact bilaterally Neck: Neck: normal visual inspection, no lymphadenopathy and trachea midline Chest: Chest palpation & inspection: normal inspection of the chest Resp: Effort & Inspection: normal respiratory effort Auscultation: clear to auscultation bilaterally Cardio: Jugular venous distension: no JVD Rate: regular rate Rhythm: regular rhythm Heart sounds: S1 normal heart sound present and S2 normal heart sound present Peripheral pulses: Peripheral pulses 2+ throughout GI: Inspection: normal to inspection GI Palp: Yes Soft to palpation, No Tenderness to palpation present (GI), No Guarding due to palpation present (GI) and No Rebound tenderness present Percussion: Yes normal to percussion Auscultation: normal bowel sounds : General: Yes no CVA tenderness Back/Spine/Pelvis: Back: no CVA tenderness Neuro: General: patient oriented x3, no focal motor deficits and CN's II-XI intact bilaterally Cognition (Neuro): normal cognition Speech: normal speech Motor exam (neuro): 5/5 motor strength present throughout Extrem: General: capillary refill normal and no clubbing, cyanosis or edema Assessment and Plan Assessment and plan (1) Screening for colorectal cancer: Code(s): Z12.11 - Encounter for screening for malignant neoplasm of colon; Z12.12 - Encounter for screening for malignant neoplasm of rectum Status: Acute Assessment and Plan: I have recommended colonoscopy. I have discussed the procedure, risks, benefits, and alternatives. Questions were answered. Patient is agreeable to proceed.
--- NOTE | 2025-03-16 08:35 | P.PNAN_ITS ---
Anes - Initial Pre Proc Eval Procedure: Operation Date: 03/16/25 09:00 Proposed Procedures p Screening Colonoscopy - Gio Torres DO Date/Time: 03/16/25 08:35 Surgeon: Gio Torres DO Pre Op Diagnosis: Screening for malignant neoplasm of colon Patient Data Age: 69 Gender: F Height: 1.63 m Weight: 66.6 kg Last Vital Signs Temp 97.3 F L 03/16/25 07:52 Pulse 71 03/16/25 07:52 Resp 16 03/16/25 07:52 BP 116/46 L 03/16/25 07:52 Pulse Ox 100 03/16/25 07:52 O2 Del Method Room Air 03/16/25 07:52 Allergies Allergy/AdvReac Type Severity Reaction Status Date / Time Penicillins Allergy Severe c diff Verified 03/16/25 07:49 clindamycin AdvReac Intermediate Other Verified 03/16/25 07:49 Home Medications ?Medication ?Instructions ?Recorded ?Confirmed ?Type lancets 30 gauge (Easy Comfort #100 ea 02/06/20 03/07/25 Rx Lancets) estradiol 10 mcg vaginal tablet 10 mcg vaginal 2XW 07/31/20 03/16/25 History (Vagifem) cholecalciferol (vitamin D3) 25 25 mcg PO DAILY 08/14/21 03/16/25 History mcg (1,000 unit) capsule blood sugar diagnostic (Blood #100 ea 07/28/22 03/07/25 Rx Glucose Test strips) Lactobacillus rhamnosus-Bifidobac. 1 cap PO DAILY 02/12/23 03/16/25 History animalis 3 billion cell capsule ([employer]) lancets (Accu-Chek Softclix #100 ea 06/27/24 03/07/25 Rx Lancets) aspirin 81 mg tablet,delayed 81 mg PO DAILY 08/25/24 03/16/25 History release (Adult Aspirin Regimen) vit B6-mag cit,ox-potassium cit 2 tablet PO BID 08/25/24 03/16/25 History 3.75 mg-45 mg-45 mg-49.5 mg tablet ER (Theralith XR) glipizide 10 mg tablet, extended 10 mg PO BID #180 tabs 10/10/24 03/16/25 Rx release 24 hr metformin 500 mg tablet,extended 500 mg PO BID #180 tabs 10/10/24 03/16/25 Rx release 24 hr escitalopram oxalate 20 mg tablet 20 mg PO QAM #90 tabs 10/20/24 03/16/25 Rx sitagliptin phosphate 100 mg 100 mg PO DAILY #30 tabs 10/27/24 03/16/25 Rx tablet (Januvia) fenofibrate 160 mg tablet 160 mg PO DAILY #90 tabs 11/24/24 03/16/25 Rx lisinopril 40 mg tablet 40 mg PO DAILY #90 tabs 11/29/24 03/16/25 Rx simvastatin 10 mg tablet 10 mg PO QHS #90 tabs 11/29/24 03/16/25 Rx hydrocortisone 2.5 % topical cream 1 applic RECTAL DAILY PRN 12/02/24 03/07/25 Rx with perineal applicator hemorrhoids #30 grams (Procto-Med ) hydrocortisone acetate 25 mg 25 mg RECTAL .q6 PRN hemorrhoids 12/02/24 03/07/25 Rx rectal suppository (Anusol-) #24 ea blood sugar diagnostic (Accu-Chek #100 ea 12/22/24 03/07/25 Rx Mariann Plus test strips) trazodone 100 mg tablet 100 mg PO QPM #90 tabs 01/03/25 03/16/25 Rx hydrochlorothiazide 25 mg tablet 25 mg PO DAILY #90 tabs 02/20/25 03/16/25 Rx dapagliflozin propanediol 10 mg 10 mg PO DAILY 02/23/25 03/16/25 History tablet (Farxiga) Laboratory Tests 03/16/25 08:06 POC Capillary Glucose 117 H mg/dl (65-105) Patient hx anesthesia problems: none Family hx anesthesia problems: none Results Review: All pre-operative results and documents have been reviewed as part of the pre-operative evaluation. [facility] Past Medical History Medical History History of colon polyps Herpes zoster dermatitis (~07/2024) left upper extremity History of stroke 08/04: MRI of the brain shows Small old lacunar infarcts at the bilateral caudate nuclei and in the right parietal lobe. Osteopenia History of kidney stones Postmenopausal symptoms CKD (chronic kidney disease) stage 3, GFR 30-59 ml/min MVP (mitral valve prolapse) Symptomatic PVCs Vitamin D deficiency Type 2 diabetes mellitus without complication, without long-term current use of insulin Dyslipidemia Essential (primary) hypertension Anxiety Insomnia Backache Surgical History Surgical History History of lithotripsy (~12/2020) 12/30 - right ESWL History of dilatation and curettage (~03/2021) 03/2021 Status post hysteroscopic polypectomy (~2008) 2018 History of foot surgery (~1999) b/l for plantar fasciitis History of cardiac cath (~06/20/14) History of cholecystectomy (~05/2016) History of mitral valve repair (~07/2014) Family History Family History Father Family history of cardiovascular disease Family history of emphysema Mother Family history of cardiovascular disease Breast cancer Other Family history of malignant neoplasm Heart disease Social History Social History Smoking status: Never smoker Second hand tobacco smoke exposure: No Alcohol intake: never Substance use: never Substance use type: does not use Lack of Transportation: No Lack of Food: Never True Current Housing: I Have Housing Concerned About Future Housing: No Difficulty Paying Gas/Electric Bills: No Difficulty Paying for Meds: No Currently Unemployed: No Education: High School Diploma/GED Living arrangements: with family Additional living arrangements comments: Occupation/Education: retired Gender identity (if verbalized by the patient): Female Sexual Orientation (if Verbalized by the Patient): Straight or Heterosexual Spiritual care concerns: No Agree to blood products: Yes Anes - Eval Final PreProcedure Day of Procedure 03/16/25 08:35 Patient weight: normal Lungs: normal air movement Airway: Mallampati scale class II Neurological: alert and oriented Last oral intake: >/= 8 hours ASA classification: III Emergent: no Anesthetic plan: proceed Anesthesia type and monitoring: general GIVS and standard monitoring Results Review: All pre-operative results and documents have been reviewed as part of the pre- operative evaluation. Hx of MV repair 2013 w good results. DM w nml FSBS. Informed Consent: The patient's anesthetic plan and its attendant risks and benefits were discussed with the patient/family/POA. Questions were solicited and answers provided to the satisfaction of the patient/family/POA.
[2025-03-16] MEDS: LACTATED RINGERS 1,000 ML 150 ML IV CONT (08:44)
[2025-03-16 08:58] VITALS: BP 111/55; PULSE 60; RESP 19; O2SAT 98
[2025-03-16 09:08] VITALS: BP 125/61; PULSE 62; RESP 17; O2SAT 100
[2025-03-16 09:18] VITALS: BP 133/60; PULSE 61; RESP 14; O2SAT 98
== END 2025-03-16 09:28 | disposition home or self-care (01) ==
PROVIDERS: PCP Family Medicine; Visit Provider Surgery
PROC: 0DJD8ZZ Inspection of Lower Intestinal Tract, Via Natural or Artificial Opening Endoscopic (ICD-10-PCS; CPT 45378; principal; 2025-03-16 09:00)
DX: Z12.11 Encounter for screening for malignant neoplasm of colon (principal); K64.8 Other hemorrhoids; I12.9 Hypertensive chronic kidney disease with stage 1 through stage 4 chronic kidney disease, or unspecified chronic kidney disease; E11.22 Type 2 diabetes mellitus with diabetic chronic kidney disease; N18.30 Chronic kidney disease, stage 3 unspecified
CPT/HCPCS: G0121; 82948; J2003; J2704; J7120

== ENCOUNTER 2025-03-29 10:15 | Outpatient (CLI) | payer MEDICARE, SELFPAY ==
--- NOTE | 2025-03-29 10:37 | ECG_ITS ---
Test Date: 2025-03-29 10:44:22 Measurements Intervals Brice Rate: 66 P: 64 GA: 169 QRS: 55 QRSD: 102 T: 78 QT: 387 QTc: 407 Interpretive Statements SINUS RHYTHM WITH FREQUENT VENTRICULAR PREMATURE COMPLEXES NONSPECIFIC ST-T WAVE ABNORMALITY- DIFFUSE LEADS BASELINE ARTIFACT- I, II, AVR ABNORMAL ECG No previous ECG available for comparison Electronically Signed On 03-29-2025 10:52:11 CDT by Lavon Albarado D.O.
--- OUTSIDE RECORDS SUMMARY | 2025-03-29 11:46 | XMS_ITS | Clinical Summary ---
Author Organization [facility] Address [address], [address] [address] Phone Care Team Providers Care Overhauler Helper Name Role Phone Unavailable Primary Care Provider [...] age to complete this topic Insurance MEDICARE [facility]
--- OUTSIDE RECORDS SUMMARY | 2025-03-29 11:46 | XMS_ITS | Continuity of Care Document ---
Author Organization [facility] Address [address] [place] [address] [address] [place] [address] Phone Care Team Providers Care Supervisor Wood Room Name Role Phone Argenis Puga Unavailable Unavailable Advance Directives Directive Yes / No Effective Date File Name No Information Encounters Encounter Description Practice Location Reason(s) For Visit Diagnoses Date Provider Providers Copied on Encounter [facility], [address], [place], [place], [id number], [place] tel:[phone] [facility] No Information [phone] Vivien More. [address] , [address], [place], [address], [place]. tel:[phone] Family History Family Member Type Diagnosis Age At Onset No Information Payers Payer name Insurance type Covered alliance party ID Authoriza tion(s) No Information Social History [...]
--- OUTSIDE RECORDS SUMMARY | 2025-03-29 11:46 | XMS_ITS | Clinical Summary ---
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 Gender Identity Not on file Sexual Orientation Not on file Obstetrics History Last Filed Vital Signs Vital Sign Reading Time Taken Comments Blood Pressure 132/82 09/01/2024 9:59 AM CAFETERIA SUPERVISOR Pulse 80 09/01/2024 9:59 AM CAFETERIA SUPERVISOR Temperature - - Respiratory Rate 18 08/07/2020 11:12 AM CDT Oxygen Saturation 98% 09/01/2024 9:59 AM CAFETERIA SUPERVISOR Inhaled Oxygen Concentration - - Weight 68 kg (150 lb) 09/01/2024 9:59 AM CAFETERIA SUPERVISOR Height 162.6 cm (5' 4) 09/01/2024 9:59 AM CAFETERIA SUPERVISOR Body Mass Index 25.75 09/01/2024 9:59 AM CAFETERIA SUPERVISOR Plan of Treatment Health Maintenance Due Date [...] 07/08/2018, 07/02/2017, Additional history exists Insurance MEDICARE [facility] MEDICARE [employer] Care Teams Public Health Clinical Nurse Specialist Relationship Specialty Start Date End Date Vikas Rocha MD PCP - General Family Practice 07/15/17
--- OUTSIDE RECORDS SUMMARY | 2025-03-29 11:46 | XMS_ITS | Referral Summary ---
Author Organization [facility] [address] Address [address] [place] [address] Care Team Providers Care Attorney Law Clerk Name Role Phone Vikas Rocha MD Primary [...] on file Legal Sex Female 7:46 PM PICKLING GRADER Gender Identity Not on file Sexual Orientation Not on file Last Filed Vital Signs Vital Sign Reading Time Taken Comments Blood Pressure 132/82 09/01/2024 9:59 AM PICKLING GRADER Pulse 80 09/01/2024 9:59 AM PICKLING GRADER Temperature - - Respiratory Rate 18 08/07/2020 11:12 AM CDT Oxygen Saturation 98% 09/01/2024 9:59 AM PICKLING GRADER Inhaled Oxygen Concentration - - Weight 68 kg (150 lb) 09/01/2024 9:59 AM PICKLING GRADER Height 162.6 cm (5' 4) 09/01/2024 9:59 AM PICKLING GRADER Body Mass Index 25.75 09/01/2024 9:59 AM PICKLING GRADER Plan of Treatment Not on file Insurance MEDICARE [facility] MEDICARE [facility] Care Teams Attorney Law Clerk Relationship Specialty Start Date End Date Vikas Rocha MD PCP - General Family Practice 07/15/17
== END 2025-03-29 10:16 | disposition home or self-care (01) ==
LOC: ANHSURGERY 10:19
PROVIDERS: PCP Family Medicine; Visit Provider Surgery
DX: R94.31 Abnormal electrocardiogram [ECG] [EKG] (principal); I10 Essential (primary) hypertension
CPT/HCPCS: 93005

== ENCOUNTER 2025-04-03 00:24 | Day surgery (SDC) | payer MEDICARE, SELFPAY ==
--- NOTE | 2025-03-24 13:43 | PC.NURSE ---
Report to the Outpatient Waiting Room, entrance under the green pavilion located off [facility], at time _10 AM on date __04/03/25 . Planned Procedure Time: _1200 NOON .? Time changes happen often and if your time is changed the preop area will call you the afternoon before. - You and your visitor will be asked to self-screen and do not enter if you have any COVID symptoms. Please call surgeon if you need to reschedule. - A mask is optional within the hospital at this time. NOTHING TO EAT OR DRINK AFTER MIDNIGHT Take only the following medications with a SIP of water on the morning of surgery: __ESCITALOPRAM, DO NOT STOP ANY OF YOUR OTHER PRESCRIPTION MEDICATIONS PRIOR TO SURGERY EXCEPT THE FOLLOWING Hold all vitamins and supplements for 3 days per anesthesiologist.LAST DOSE 03/30/25 MAY CONTINUE ASPIRIN 81MG PER DR WILBURN,BUT DON'T TAKE MORNING OF SURGERY __ BOWEL PREP PER DR WILBURN Please no make-up, nail british virgin islander, hairspray, perfume, deodorant, or body powder the day of surgery.? No jewelry (including any body piercings) or valuables the day of surgery, leave them at home.? Please take a shower or bath the night before, or the morning of, surgery with an antibacterial soap.? Wear comfortable, loose fitting clothing.? Children are encouraged to wear pajamas. - Jewelry must be removed prior to entering the operating room.? Rings and piercings that are not removed may be cut off. - The hospital will not accept responsibility for valuables.? - Please leave all valuables, including medications, at home the day of surgery. If you are going home after surgery, a licensed fuel oil truck driver must drive you home.? - NO public transportation without another adult if you receive anesthesia. - We recommend that an adult stay with you for 24 hours following discharge. - We also recommend that you do not drive, make important decision, drink alcoholic beverages, or take any drugs that were not prescribed by your health care provider for at least 24 hours after your discharge time. For Pediatric surgeries, we recommend two adults accompany the child home. Follow any additional instructions given to you from your surgeon. Telephone instructions given to __PATIENT and asked if any additional questions and then verbalized understanding. Patient advised to call surgeon office or pre surgery nurse liaison [phone] if any additional questions.
[2025-03-24 13:58] VITALS: BMI 25.5
[2025-04-03] VITALS (9 sets, daily range): BP systolic 117–147; BP diastolic 45–88; PULSE 67–96; RESP 14–18; TEMP 36.1–36.2; O2SAT 92–100
[2025-04-03] MEDS: ACETAMINOPHEN 500 MG TABLET 1000 MG PO (10:15)
[2025-04-03] MEDS: KETOROLAC 15 MG/ML VIAL (*BKC) IV PUSH (10:25)
[2025-04-03 10:28] LABS: Glucose Point of Care 81 mg/dl (65-105)
--- NOTE | 2025-04-03 11:41 | WPDANESEPPF ---
Anes - Initial Pre Proc Eval Procedure: Operation Date: 04/03/25 12:00 Proposed Procedures p Examination Under Anesthesia, Excisional Hemorrhoidectomy, Possible Banding - Jerald Garrison MD Date/Time: 04/03/25 11:41 Surgeon: Jerald Garrison MD Pre Op Diagnosis: Sym Grade3 Hemorrhoids Patient Data Age: 69 Gender: F Height: 1.63 m Weight: 67 kg Last Vital Signs Temp 36.1 C L 04/03/25 10:13 Pulse 67 04/03/25 10:13 Resp 18 04/03/25 10:13 BP 127/45 L 04/03/25 10:13 Pulse Ox 100 04/03/25 10:13 O2 Del Method Room Air 04/03/25 10:13 Allergies Allergy/AdvReac Type Severity Reaction Status Date / Time Penicillins Allergy Severe c diff Verified 04/03/25 10:34 clindamycin AdvReac Intermediate Other Verified 04/03/25 10:38 Home Medications ?Medication ?Instructions ?Recorded ?Confirmed ?Type lancets 30 gauge (Easy Comfort #100 ea 02/06/20 03/07/25 Rx Lancets) estradiol 10 mcg vaginal tablet 10 mcg vaginal 2XW 07/31/20 03/24/25 History (Vagifem) cholecalciferol (vitamin D3) 25 25 mcg PO DAILY 08/14/21 04/03/25 History mcg (1,000 unit) capsule blood sugar diagnostic (Blood #100 ea 07/28/22 03/07/25 Rx Glucose Test strips) Lactobacillus rhamnosus-Bifidobac. 1 cap PO DAILY 02/12/23 04/03/25 History animalis 3 billion cell capsule ([employer]) lancets (Accu-Chek Softclix #100 ea 06/27/24 03/07/25 Rx Lancets) aspirin 81 mg tablet,delayed 81 mg PO DAILY 08/25/24 03/24/25 History release (Adult Aspirin Regimen) vit B6-mag cit,ox-potassium cit 2 tablet PO BID 08/25/24 04/03/25 History 3.75 mg-45 mg-45 mg-49.5 mg tablet ER (Theralith XR) glipizide 10 mg tablet, extended 10 mg PO BID #180 tabs 10/10/24 04/03/25 Rx release 24 hr metformin 500 mg tablet,extended 500 mg PO BID #180 tabs 10/10/24 04/03/25 Rx release 24 hr escitalopram oxalate 20 mg tablet 20 mg PO QAM #90 tabs 10/20/24 04/03/25 Rx sitagliptin phosphate 100 mg 100 mg PO DAILY #30 tabs 10/27/24 04/03/25 Rx tablet (Januvia) fenofibrate 160 mg tablet 160 mg PO DAILY #90 tabs 11/24/24 04/03/25 Rx lisinopril 40 mg tablet 40 mg PO DAILY #90 tabs 11/29/24 04/03/25 Rx simvastatin 10 mg tablet 10 mg PO QHS #90 tabs 11/29/24 04/03/25 Rx trazodone 100 mg tablet 100 mg PO QPM #90 tabs 01/03/25 04/03/25 Rx hydrochlorothiazide 25 mg tablet 25 mg PO DAILY #90 tabs 02/20/25 04/03/25 Rx dapagliflozin propanediol 10 mg 10 mg PO DAILY 02/23/25 04/03/25 History tablet (Farxiga) blood sugar diagnostic (Accu-Chek #100 ea 03/24/25 Rx Mariann Plus test strips) Laboratory Tests 04/03/25 10:22 POC Capillary Glucose 81 mg/dl (65-105) Patient hx anesthesia problems: none Family hx anesthesia problems: none Results Review: All pre-operative results and documents have been reviewed as part of the pre-operative evaluation. [facility] Past Medical History Medical History History of colon polyps Herpes zoster dermatitis (~07/2024) left upper extremity History of stroke 08/04: MRI of the brain shows Small old lacunar infarcts at the bilateral caudate nuclei and in the right parietal lobe. Osteopenia History of kidney stones Postmenopausal symptoms CKD (chronic kidney disease) stage 3, GFR 30-59 ml/min MVP (mitral valve prolapse) Symptomatic PVCs Vitamin D deficiency Type 2 diabetes mellitus without complication, without long-term current use of insulin Dyslipidemia Essential (primary) hypertension Anxiety Insomnia Backache Surgical History Surgical History History of lithotripsy (~12/2020) 12/30 - right ESWL History of dilatation and curettage (~03/2021) 03/2021 Status post hysteroscopic polypectomy (~2008) 2018 History of foot surgery (~1999) b/l for plantar fasciitis History of cardiac cath (~06/20/14) History of cholecystectomy (~05/2016) History of mitral valve repair (~07/2014) Family History Family History Father Family history of cardiovascular disease Family history of emphysema Mother Family history of cardiovascular disease Breast cancer Other Family history of malignant neoplasm Heart disease Social History Social History Smoking status: Never smoker Second hand tobacco smoke exposure: No Alcohol intake: never Substance use: never Substance use type: does not use Lack of Transportation: No Lack of Food: Never True Current Housing: I Have Housing Concerned About Future Housing: No Difficulty Paying Gas/Electric Bills: No Difficulty Paying for Meds: No Currently Unemployed: No Education: High School Diploma/GED Living arrangements: with family Additional living arrangements comments: Occupation/Education: retired Gender identity (if verbalized by the patient): Female Sexual Orientation (if Verbalized by the Patient): Straight or Heterosexual Spiritual care concerns: No Agree to blood products: Yes Anes - Eval Final PreProcedure Day of Procedure 04/03/25 11:41 Patient weight: normal Heart: regular rate and rhythm Lungs: clear to auscultation Airway: Mallampati scale class II Neurological: alert and oriented Last oral intake: >/= 8 hours ASA classification: III Emergent: no Anesthetic plan: proceed Anesthesia type and monitoring: general ETT and standard monitoring Results Review: All pre-operative results and documents have been reviewed as part of the pre-operative evaluation. Informed Consent: The patient's anesthetic plan and its attendant risks and benefits were discussed with the patient/family/POA. Questions were solicited and answers provided to the satisfaction of the patient/family/POA.
--- NOTE | 2025-04-03 11:46 | WPDHPUPDATE1 ---
History and Physical Update Update Date/Time: 04/03/25 11:46 History and Physical has been reviewed, including an updated exam of the patient. There are NO changes in the patient's condition. Risks, benefits, and alternatives have been discussed and questions answered. Patient agrees to proceed with procedure.
[2025-04-03] MEDS: ceFAZolin 2 GM/D5W 50 ML 2 GM/50 ML BAG IVPB (12:10)
[2025-04-03] MEDS: BUPivacaine HCL 0.5% 10 ML AMP 30 ML INFILTRATE (12:27)
[2025-04-03] MEDS: LIDO 1%/EPINEPHRINE 1:100,000 50 ML VIAL 20 ML INFILTRATE (12:27)
--- NOTE | 2025-04-03 12:47 | S_PTH ---
PATIENT: Loretta Victor LOC: [facility] U#:[id number] AGE/SX: 69/F ROOM: RE04/03/[address]: Jerald Garrison MD : 1955 BED: DIS: 04/03/2025 SPEC #: [id number] RECD: 04/03/25 14:01 STATUS: EDWARD RE #: [id number] TOMMY: 04/03/25 12:[address]: Jerald Garrison DEPT: [facility] Surgical RECD BY: Jacque Brown ENTERED: 04/03/25 14:02 SP TYPE: Surgical OTHR DR: Vikas Rocha MD Tissues: A - Hemorroid B - Hemorroid Procedures: Hematoxylin and Eosin Stain Gross and Microscopic Level 3
[2025-04-03] MEDS: LIDOCAINE 2% GEL UROJET 10 ML PKG MUCOUS MEM (13:10)
[2025-04-03] MEDS: LACTATED RINGERS 1,000 ML 30 ML IV CONT ×2 (13:30→14:01)
[2025-04-03 13:35] LABS: Glucose Point of Care 52 mg/dl (65-105)
--- NOTE | 2025-04-03 13:36 | P.OP_ITS ---
Procedure Note - Detailed Date of Procedure 04/03/25 Pre-op Diagnosis Symptomatic the grade 3 combined internal/external hemorrhoids Post-op Diagnosis Same Procedure Performed Anal rectal evaluation under anesthesia and excisional hemorrhoidectomy x3 Surgeon Jerald Garrison MD Chemist Internship [facility] Anesthesia General Indications Patient is a 69-year-old female who has had issues with bleeding from her hemorrhoids. She had a recent colonoscopy which showed only some diverticulosis but no evidence of colonic neoplasms. Combined internal-external hemorrhoids were noted. She presents now for excisional hemorrhoidectomy of the symptomatic hemorrhoids. Findings Patient had combined internal-external hemorrhoids located at the 2 o'clock. and 9 o'clock positions with the patient prone. She also had an external hemorrhoid at the 12 o'clock position in the posterior midline. No thrombosis hemorrhage was seen. Anal canal was free of any polyps or masses in the distal rectum was free of any masses. Description of Procedure After informed consent was obtained patient brought to the operating room she was placed under general endotracheal anesthesia on the gurney then turned onto the prone daniella-knife position on the operating table. Care stated make sure the pressure points were well padded. The buttocks were then taped apart and the perianal region was then prepped and draped usual sterile fashion. Time-out was then performed correctly identifying the patient as well as procedure to be performed. She was given perioperative IV antibiotics. I 1st started by dil ating the anal sphincters to a diameter 3 finger breaths. The well lubricated anal speculum was then placed into the anal canal and then a circumferential evaluation in canal and distal rectum was performed. There is no evidence of any masses or polyps in the distal rectum or anal canal. Within the anal canal at the 2 o'clock and 9 o'clock positions with the patient prone there were combined internal and external hemorrhoids which were nonthrombosed. At the 12 o'clock position the posterior midline was a external hemorrhoid without internal component. I then proceeded to excise the combined internal-external hemorrhoids at the 2 o'clock and 9 o'clock positions. These were both excised in a similar fashion. The anal speculum placed into the anal canal and spread widely into the anal sphincters were under tension I could easily palpate the anal sphincters. In the area the hemorrhoid I placed 2-0 chromic suture at the apex of the hemorrhoid above the dentate line. Then I injected 1% lidocaine mixed with 0.5% Marcaine in the perianal skin underneath the hemorrhoid to raise the hemorrhoid off of the anal sphincters. A 15 blade scalpel was used to incise the tissue on either side of the hemorrhoid tissue extended the incision onto the perianal skin in a amrando configuration. I then utilized electrocautery to completely excise off the perianal skin and external hemorrhoidal component along with the internal hemorrhoid component without damaging the internal sphincters. The specimens were sent to pathology labeled hemorrhoids 2 o'clock and 9 o'clock positions separately. Both incisions were then closed by running the 2-0 chromic sutures in a running locking fashion to the anal verge. Then I switched over to using 3-0 Vicryl suture to close the rest of the incision approximate the skin edges on the perianal skin in a running and locking fashion. Anal speculum placed into the anal canal and there was some relative narrowing of the anal canal due to the 2 column hemorrhoidectomy. I then decided to excise the external hemorrhoid at the 12 o'clock position. Again local anesthetic mixture was injected underneath the external hemorrhoid and perianal skin. I then excised off the redundant perianal skin and have external hemorrhoid tissue utilizing a pair Metzenbaum scissors. Hemostasis on the edges were good. I then closed this incision utilizing a running and locking 2-0 Vicryl suture. The tissue from the external hemorrhoid was discarded. I then irrigated out the anal canal sterile saline solution. Hemostasis was good. I then injected [id number] of 1% lidocaine mixed with 0.5% Marcaine 50 50 mixture with some epinephrine in the perianal region for a perianal block and then administered bilateral pudendal nerve blocks as well. I then placed Gelfoam packing into the anal canal covered with viscous lidocaine. There is then cleaned and then 4x4 gauze and ABD pad and disposable underwear edges for final dressing. The patient tolerated the procedure well no complications. All sponges, needles, and instrument counts were correct at the end procedure. EBL was _25__cc. The patient was awakened and taken to recovery in stable and satisfactory condition. Implants None Estimated Blood Loss 25 Drains No Packing Yes (Gelfoam packing into the anal canal) Pathology Yes (Combined internal-external hemorrhoids at 2 o'clock and 9 o'clock positions sent to pathology) Complications No immediate complications Condition Stable Disposition PACU [facility] Billing Surgery - Charge Forward: Surgery Billing
[2025-04-03] MEDS: DEXTROSE 50% 25 GM/50 ML SYRINGE IV PUSH (13:38)
[2025-04-03 13:50] LABS: Glucose Point of Care 102 mg/dl (65-105)
[2025-04-03 14:25] LABS: Glucose Point of Care 142 mg/dl (65-105)
--- NOTE | 2025-04-03 16:04 | SUR.PHASEII ---
AFTER TRYING TO URINATE, PACKING FELL OUT; MODERATE AMOUNT SEROSANGUINOUS TO RECTAL DRESSING AND PANTY. DR. WILBURN NOTIFIED; NO INTERVENTIONS ORDERED; DRESSING/PANTY CHANGED. NO ACTIVE BLEEDING SINCE THEN.
== END 2025-04-03 15:45 | disposition home or self-care (01) ==
PROVIDERS: PCP Family Medicine; Visit Provider Surgery
PROC: (CPT 46260; principal; 2025-04-03 12:00)
DX: K64.2 Third degree hemorrhoids (principal); K64.4 Residual hemorrhoidal skin tags; I12.9 Hypertensive chronic kidney disease with stage 1 through stage 4 chronic kidney disease, or unspecified chronic kidney disease; E11.22 Type 2 diabetes mellitus with diabetic chronic kidney disease; N18.30 Chronic kidney disease, stage 3 unspecified
CPT/HCPCS: 46260; 82948; 88304; A9270; J0690; J1100; J1885; J2003; J2004; J2371; J2405; J2704; J7120

== ENCOUNTER → 2025-05-01 11:28 | Outpatient (REF) | payer MEDICARE, SELFPAY ==
--- NOTE | 2025-05-01 11:28 | S_PTH ---
PATIENT: Loretta Victor LOC: [facility] #:[id number] AGE/SX: 70/F ROOM: RE05/01/[address]: Reji Orosco MD : 1955 BED: DIS: SPEC #: [id number] RECD: 05/01/25 12:56 STATUS: EDWARD REAlyce #: [id number] TOMMY: 05/01/25 11:[address]: Reji Orosco DEPT: [facility] Surgical RECD BY: Jacque Brown ENTERED: 05/01/25 12:57 SP TYPE: Surgical OTHR DR: Vikas Rocha MD Tissues: A - Skin Procedures: Hematoxylin and Eosin Stain Gross and Microscopic Level 4
--- OUTSIDE RECORDS SUMMARY | 2025-05-01 11:30 | XMS_ITS | Clinical Summary ---
Author Organization 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 Gender Identity Not on file Sexual Orientation Not on file Obstetrics History Last Filed Vital Signs Vital Sign Reading Time Taken Comments Blood Pressure 132/82 09/01/2024 9:59 AM DUST MILL OPERATOR Pulse 80 09/01/2024 9:59 AM DUST MILL OPERATOR Temperature - - Respiratory Rate 18 08/07/2020 11:12 AM CDT Oxygen Saturation 98% 09/01/2024 9:59 AM DUST MILL OPERATOR Inhaled Oxygen Concentration - - Weight 68 kg (150 lb) 09/01/2024 9:59 AM DUST MILL OPERATOR Height 162.6 cm (5' 4) 09/01/2024 9:59 AM DUST MILL OPERATOR Body Mass Index 25.75 09/01/2024 9:59 AM DUST MILL OPERATOR Plan of Treatment Health Maintenance Due Date [...] or Tdap) 03/16/2022 03/16/2012 Influenza Vaccine (#1) 2025 9, 07/08/2018, 07/02/2017, Additional history exists Insurance MEDICARE [facility] MEDICARE [employer] Care Teams Salesperson Art Objects Relationship Specialty Start Date End Date Vikas Rocha MD PCP - General Family Practice 07/15/17
--- OUTSIDE RECORDS SUMMARY | 2025-05-01 11:30 | XMS_ITS | Continuity of Care Document ---
Author Organization [facility] Address [address] [place] [address] [address] [place] [address] Phone Care Team Providers Care Auto Adjudication Specialist Name Role Phone Argenis Puga Unavailable Unavailable Advance Directives Directive Yes / No Effective Date File Name No Information Encounters Encounter Description Practice Location Reason(s) For Visit Diagnoses Date Provider Providers Copied on Encounter [facility], [address], [place], [place], [id number], [place] tel:[phone] [facility] No Information [phone] Vivien More. [address] , [address], [place], [address], [place]. tel:[phone] Family History Family Member Type Diagnosis Age At Onset No Information Payers Payer name Insurance type Covered constitution party ID Authoriza tion(s) No Information Social [...]
--- OUTSIDE RECORDS SUMMARY | 2025-05-01 11:30 | XMS_ITS | Clinical Summary ---
Author Organization [facility] Address [address], [address] [address] Phone Care Team Providers Care Family Day Care Provider Name Role Phone Unavailable Primary Care Provider [...] age to complete this topic Insurance MEDICARE [facility]
--- OUTSIDE RECORDS SUMMARY | 2025-05-01 11:30 | XMS_ITS | Referral Summary ---
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 Gender Identity Not on file Sexual Orientation Not on file Last Filed Vital Signs Vital Sign Reading Time Taken Comments Blood Pressure 132/82 09/01/2024 9:59 AM GRAB JACK WORKER Pulse 80 09/01/2024 9:59 AM GRAB JACK WORKER Temperature - - Respiratory Rate 18 08/07/2020 11:12 AM CDT Oxygen Saturation 98% 09/01/2024 9:59 AM GRAB JACK WORKER Inhaled Oxygen Concentration - - Weight 68 kg (150 lb) 09/01/2024 9:59 AM GRAB JACK WORKER Height 162.6 cm (5' 4) 09/01/2024 9:59 AM GRAB JACK WORKER Body Mass Index 25.75 09/01/2024 9:59 AM GRAB JACK WORKER Plan of Treatment Not on file Insurance MEDICARE [facility] MEDICARE [facility] Care Teams Land Inspector Relationship Specialty Start Date End Date Vikas Rocha MD PCP - General Family Practice 07/15/17
== END ==
LOC: ANHLAB 11:28
PROVIDERS: PCP Family Medicine; Visit Provider Plastic Surgery
DX: D48.5 Neoplasm of uncertain behavior of skin (principal)
CPT/HCPCS: 88305

== ENCOUNTER 2025-07-13 11:22 | Outpatient (CLI) | payer MEDICARE, SELFPAY ==
--- OUTSIDE RECORDS SUMMARY | 2000-04-13 08:30 | XMS_ITS | Continuity of Care Document ---
Author Organization [facility] Address [id number] [place] [address] [address] [place] [address] Phone Care Team Providers Care Grocery Buyer Name Role Phone Argenis Puga Unavailable Unavailable Advance Directives Directive Yes / No Effective Date File Name No Information Encounters Encounter Description Practice Location Reason(s) For Visit Diagnoses Date Provider Providers Copied on Encounter [facility], [address], [place], [place], [id number], [place] tel:[phone] [facility] No Information [phone] Vivien More. [address] [facility] [address] , [address], [place], [address], [place]. tel:[phone] Family History Family Member Type Diagnosis Age At Onset No Information Payers Payer name Insurance type Covered libertarian ID Authoriza tion(s) No Information Social History Type Description Quantity Date Captured Comments Sex Female Smoking Status No Information Chief Complaint And Reason For Visit No Information Reason For Referral Reason For Referral No Information History Of Present Illness Encounter Date Complaint History Of Prese nt Illness No Information Functional Status Date Functional Assessmen t No Information Instructions Date Instruction Additional Infor mation No Information Assessments Type Assessment Date No Information Patient Care Teams Name Effective Dates (start - stop) Status Members No Information
--- OUTSIDE RECORDS SUMMARY | 2025-07-13 11:50 | XMS_ITS | Clinical Summary ---
Author Organization [facility] Address [address], [address] [address] Phone Care Team Providers Care Chief Resource Officer Name Role Phone Unavailable Primary Care Provider Unavailabl e Social History Tobacco Use Types Packs/Day Years Used Date Smoking Tobacco: Never Assessed Comments Unknown Sex and Gender Information Value Date Recorded Sex Assigned at Not on file Legal Sex Female 5:40 PM CDT Gender Identity Not on file Sexual Orientation Not on file Plan of Treatment Health Maintenance Due Date Last Done Comments Hepatitis C Virus (HCV) Screening 1955 TdaP Immunization 1955 Cologuard 1999 Colonoscopy 1999 Colorectal Cancer Screening 1999 Immunochemical Fecal Occult Blood 1999 Pneumococcal Immunization (5 0+ years) (1 of 1 - PCV) 2004 Zoster Immunization (1 of 2) 2004 Medicare Initial AWV [id number] 05/12/2020 Influenza Immunization (#1) 2025 SARS-COV-2 Immunization (1 - 2023-25 season) 2025 Respiratory Syncytial Virus (RSV) Immunization (Adult) (1 - 1-dose 75+ series) 2029 Hepatitis B Immunization Aged Out No longer eligible based on patient's age to complete this topic Human Papillomavirus (HPV) Immunization Aged Out No longer eligible b ased on patient's age to complete this topic Meningococcal Immunization (ACWY) Aged Out No longer eligible based on patient's age to complete this topic Rotavirus Immunization Aged Out No lo nger eligible based on patient's age to complete this topic Insurance MEDICARE [facility]
--- OUTSIDE RECORDS SUMMARY | 2025-07-13 11:50 | XMS_ITS | Clinical Summary ---
Author Organization [facility] [address] Address [address] [place] [address] Care Team Providers Care Heating Unit Mechanic Name Role Phone Vikas Rocha MD Primary [...] Comments Hx Other Medical palpitations; C omments: [facility] 06/08/2014 - Hypertension Hypertension Hx Other Medical Irregular heart rate; Comments: [facility] 06/08/2014 - Diabetes mellitus Diabetes evans dunbar; Comments: [facility] 06/08/2014 - Anxiety disorder Anxiety Family History [...] on file Legal Sex Female 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 BUSINESS 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 Gender Identity Not on file Sexual Orientation Not on file Obstetrics History Last Filed Vital Signs Vital Sign Reading Time Taken Comments Blood Pressure 132/82 09/01/2024 9:59 AM HR BUSINESS PARTNER Pulse 80 09/01/2024 9:59 AM HR BUSINESS PARTNER Temperature - - Respiratory Rate 18 08/07/2020 11:12 AM CDT Oxygen Saturation 98% 09/01/2024 9:59 AM HR BUSINESS PARTNER Inhaled Oxygen Concentration - - Weight 68 kg (150 lb) 09/01/2024 9:59 AM HR BUSINESS PARTNER Height 162.6 cm (5' 4) 09/01/2024 9:59 AM HR BUSINESS PARTNER Body Mass Index 25.75 09/01/2024 9:59 AM HR BUSINESS PARTNER Plan of Treatment Health Maintenance Due Date [...] 07/08/2018, 07/02/2017, Additional history exists Insurance MEDICARE [facility] MEDICARE [employer] Care Teams Heating Unit Mechanic Relationship Specialty Start Date End Date Vikas Rocha MD PCP - General Family Practice 07/15/17
[2025-07-13 12:46] LABS: Anion Gap 10 mmol/L (4-12); Blood Urea Nitrogen 26 mg/dL (7-17); Calcium 9.7 mg/dL (8.4-10.2); Carbon Dioxide 28 mmol/L (22-30); Chloride 100 mmol/L (98-107); Estimated Glomerular Filt Rate 54; Glucose 231 mg/dL (65-110); Potassium 4.2 mmol/L (3.4-5.0); Sodium 138 mmol/L (137-145)
== END 2025-07-13 11:23 | disposition home or self-care (01) ==
LOC: ANHLAB 11:27
PROVIDERS: PCP Family Medicine; Visit Provider Anesthesiology
DX: E11.9 Type 2 diabetes mellitus without complications (principal)
CPT/HCPCS: 36415; 80048

== ENCOUNTER 2025-07-20 09:08 | Outpatient (NON) | payer MEDICARE, SELFPAY ==
--- NOTE | 2025-07-20 | S_PTH ---
PATIENT: Loretta Victor LOC: [facility] #:[id number] AGE/SX: 70/F ROOM: RE07/20/[address]: Reji Orosco MD : 1955 BED: DIS: 07/20/2025 SPEC #: [id number] RECD: 07/21/25 10:12 STATUS: EDWARD REAlyce #: [id number] TOMMY: 07/20/25 00:[address]: Reji Orosco DEPT: [facility] Surgical RECD BY: Jacque Brown ENTERED: 07/21/25 10:15 SP TYPE: Surgical OTHR DR: Vikas Rocha MD Tissues: A - Cyst B - Soft Tissue Procedures: Hematoxylin and Eosin Stain Gross and Microscopic Level 3 Gross and Microscopic Level 4
--- OUTSIDE RECORDS SUMMARY | 2025-07-21 09:30 | XMS_ITS | Clinical Summary ---
Author Organization [facility] Address [address], [address] [address] Phone Care Team Providers Care Research Worker Encyclopedia Name Role Phone Unavailable Primary Care Provider [...] age to complete this topic Insurance MEDICARE [facility]
--- OUTSIDE RECORDS SUMMARY | 2025-07-21 09:30 | XMS_ITS | Clinical Summary ---
Author Organization [facility] [address] Address [address] [place] [address] Care Team Providers Care Business Continuity Global Director Name Role Phone Vikas Rocha MD Primary [...] Comments Hx Other Medical palpitations; C omments: [facility] 06/08/2014 - Hypertension Hypertension Hx Other Medical Irregular heart rate; Comments: [facility] 06/08/2014 - Diabetes mellitus Diabetes evans dunbar; Comments: [facility] 06/08/2014 - Anxiety disorder Anxiety Family [...] on file Legal Sex Female 7:46 PM SYSTEMS 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 Gender Identity Not on file Sexual Orientation Not on file Obstetrics History Last Filed Vital Signs Vital Sign Reading Time Taken Comments Blood Pressure 132/82 09/01/2024 9:59 AM SYSTEMS 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 Pulse 80 09/01/2024 9:59 AM SYSTEMS 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 Temperature - - Respiratory Rate 18 08/07/2020 11:12 AM CDT Oxygen Saturation 98% 09/01/2024 9:59 AM SYSTEMS 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 Inhaled Oxygen Concentration - - Weight 68 kg (150 lb) 09/01/2024 9:59 AM SYSTEMS 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 Height 162.6 cm (5' 4) 09/01/2024 9:59 AM SYSTEMS 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 Body Mass Index 25.75 09/01/2024 9:59 AM SYSTEMS 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 Plan of Treatment Health Maintenance Due Date [...] 07/08/2018, 07/02/2017, Additional history exists Insurance MEDICARE [facility] MEDICARE [employer] Care Teams Business Continuity Global Director Relationship Specialty Start Date End Date Vikas Rocha MD PCP - General Family Practice 07/15/17
== END 2025-07-20 09:09 | disposition home or self-care (01) ==
LOC: ANHLAB 07-21 09:14
PROVIDERS: PCP Family Medicine; Visit Provider Plastic Surgery
DX: M67.441 Ganglion, right hand (principal); M25.741 Osteophyte, right hand
CPT/HCPCS: 88304; 88305

== ENCOUNTER 2025-07-20 09:47 | Day surgery (SDC) | payer MEDICARE, SELFPAY ==
[2025-07-10 12:44] VITALS: BMI 25.0
--- NOTE | 2025-07-20 07:01 | WPDHPUPDATE1 ---
History and Physical Update Update Date/Time: 07/20/25 07:01 Patient seen and examined in pre-operative holding area. No interval change in medical history or symptoms. Patient recalls previous discussion of benefits and alternatives to procedure. Continues to desire to proceed with right middle finger mucous cyst excision . Reviewed procedure, post-op expectations and risks including but not limited to bleeding, infection, injury to tendon/nerve/vessel, decreased hand function, stiffness, RSD, no change or worsening of symptoms. recurrence. I discussed the possible use of assistants and their participation in the case. Patient stated understanding and signed the consent form wishing to proceed.
--- NOTE | 2025-07-20 07:01 | W.PM.PROC2 ---
Procedure Note - Detailed Date of Procedure 07/20/25 Pre-op Diagnosis Digital Mucous Cyst Right Middle Finger Post-op Diagnosis Same Procedure Performed R mf mucous cyst excision Surgeon Reji Orosco MD Dishtank Operator noreen brar pa-c Anesthesia MAC Description of Procedure INFORMED CONSENT: The patient was seen and examined and marked in the pre-op area.? The patient signed the consent form. PROCEDURE IN DETAIL:The patient taken back to OR on the stretcher in supine position. Time out performed with anesthesia, surgeon and staff agreeing on patient's name site and surgery to be performed SCDs were placed on the lower extremities and inflated. A tourniquet was placed on {right} upper extremity and antibiotics given IV After anesthesia administered sedation I injected {3}cc 1%lido and 0.5% marcaine plain for digital block in the palm The?{right upper extremity}?was prepped and draped in sterile fashion the??{right upper extremity} was? exsanguinated with Esmarch bandage and tourniquet inflated to 250mmHg I proceeded with making an elliptical incision over the thinned, affected tissue of the right middle finger cyst through skin and dermis with 15 blade scalpel. This incision was carried proximally and distally to allow exposure and raising skin flaps with 15 blade. Identified the mucous cyst coming off of the middle of the PIP joint where this was resected with 15 blade. The base was cauterized with bipolar cautery. Identified a larger osteophyte coming off the distal phalanx. I made incision over this with 15 blade and reflected periosteum and rongeured this until smooth. I irrigated with normal saline and closed the capsular defect with 4-0 Vicryl suture. 4-0 chromic was used for skin closure. A dressing of xeroform, 4x4,and tube gauze was applied after the tourniquet was let down noting the hand was warm and well perfused. The patient was then awaken from anesthesia and transferred to the recovery room in stable condition.? Complications - none EBL- 0cc Disposition - home in stable condition Noreen Brar PA-C was essential for positioning, retraction, closure and dressing placement. [facility] Billing Surgery - Charge Forward: Surgery Billing ([id number] same for noreen adding )
[2025-07-20 10:15] VITALS: BP 148/53; PULSE 62; RESP 16; O2SAT 100
[2025-07-20] MEDS: LACTATED RINGERS 1,000 ML 30 ML IV CONT (10:55)
[2025-07-20] MEDS: ACETAMINOPHEN 500 MG TABLET 1000 MG PO (10:55)
--- NOTE | 2025-07-20 11:30 | WPDANESEPPF ---
Anes - Initial Pre Proc Eval Procedure: Operation Date: 07/20/25 11:30 Proposed Procedures p Excision Mucous Cyst Right Middle Finger - Reji Orosco MD Date/Time: 07/20/25 11:30 Surgeon: Reji Orosco MD Pre Op Diagnosis: Digital Mucous Cyst Right Middle Finger Patient Data Age: 70 Gender: F Height: 1.63 m Weight: 66.85 kg Last Vital Signs Pulse 62 07/20/25 10:15 Resp 16 07/20/25 10:15 BP 148/53 H 07/20/25 10:15 Pulse Ox 100 07/20/25 10:15 O2 Del Method Room Air 07/20/25 10:15 Allergies Allergy/AdvReac Type Severity Reaction Status Date / Time Penicillins AdvReac Severe c diff Verified 07/20/25 10:54 clindamycin AdvReac Intermediate C-DIFF Verified 07/20/25 10:54 Home Medications ?Medication ?Instructions ?Recorded ?Confirmed ?Type lancets 30 gauge (Easy Comfort #100 ea 02/06/20 05/05/25 Rx Lancets) estradiol 10 mcg vaginal tablet 10 mcg vaginal 2XW 07/31/20 07/20/25 History (Vagifem) cholecalciferol (vitamin D3) 25 25 mcg PO DAILY 08/14/21 07/20/25 History mcg (1,000 unit) capsule blood sugar diagnostic (Blood #100 ea 07/28/22 05/05/25 Rx Glucose Test strips) Lactobacillus rhamnosus-Bifidobac. 1 cap PO DAILY 02/12/23 07/20/25 History animalis 3 billion cell capsule (BizAnytime) lancets (Accu-Chek Softclix #100 ea 06/27/24 05/05/25 Rx Lancets) aspirin 81 mg tablet,delayed 81 mg PO DAILY 08/25/24 07/20/25 History release (Adult Aspirin Regimen) vit B6-mag cit,ox-potassium cit 2 tablet PO BID 08/25/24 07/20/25 History 3.75 mg-45 mg-45 mg-49.5 mg tablet ER (Theralith XR) hydrochlorothiazide 25 mg tablet 25 mg PO DAILY #90 tabs 02/20/25 07/20/25 Rx dapagliflozin propanediol 10 mg 10 mg PO DAILY 02/23/25 07/20/25 History tablet (Farxiga) blood sugar diagnostic (Accu-Chek #100 ea 03/24/25 05/05/25 Rx Mariann Plus test strips) glipizide 10 mg tablet, extended 10 mg PO BID #180 tabs 04/06/25 07/20/25 Rx release 24 hr metformin 500 mg tablet,extended 500 mg PO BID #180 tabs 04/06/25 07/20/25 Rx release 24 hr escitalopram oxalate 20 mg tablet 20 mg PO QAM #90 tabs 04/17/25 07/20/25 Rx sitagliptin phosphate 100 mg 100 mg PO DAILY #90 tabs 04/17/25 07/20/25 Rx tablet (Januvia) fenofibrate 160 mg tablet 160 mg PO DAILY #90 tabs 05/22/25 07/20/25 Rx lisinopril 40 mg tablet 40 mg PO DAILY #90 tabs 05/29/25 07/20/25 Rx simvastatin 10 mg tablet 10 mg PO QHS #90 tabs 05/29/25 07/20/25 Rx trazodone 100 mg tablet 100 mg PO QPM #90 tabs 06/29/25 07/20/25 Rx tramadol 50 mg tablet 50 mg PO Q6H PRN pain #12 tabs 07/20/25 Rx Laboratory Tests 07/20/25 11:20 POC Capillary Glucose 130 H mg/dl (65-105) : patient denies Patient hx anesthesia problems: none Family hx anesthesia problems: none Results Review: All pre-operative results and documents have been reviewed as part of the pre-operative evaluation. COUNTS INCLUDE 234 BEDS AT THE [facility] Past Medical History Medical History History of colon polyps Herpes zoster dermatitis (~07/2024) left upper extremity History of stroke 08/04: MRI of the brain shows Small old lacunar infarcts at the bilateral caudate nuclei and in the right parietal lobe. Osteopenia History of kidney stones Postmenopausal symptoms CKD (chronic kidney disease) stage 3, GFR 30-59 ml/min MVP (mitral valve prolapse) Symptomatic PVCs Vitamin D deficiency Type 2 diabetes mellitus without complication, without long-term current use of insulin Dyslipidemia Essential (primary) hypertension Anxiety Insomnia Backache Surgical History Surgical History Hx of hemorrhoidectomy 04/03/2025 Anal rectal evaluation under anesthesia and excisional hemorrhoidectomy x3 Dr. Garrison History of lithotripsy (~12/2020) 12/30 - right ESWL History of dilatation and curettage (~03/2021) 03/2021 Status post hysteroscopic polypectomy (~2008) 2018 History of foot surgery (~1999) b/l for plantar fasciitis History of cardiac cath (~06/20/14) History of cholecystectomy (~05/2016) History of mitral valve repair (~07/2014) Family History Family History Father Family history of cardiovascular disease Family history of emphysema Mother Family history of cardiovascular disease Breast cancer Other Family history of malignant neoplasm Heart disease Social History Social History Smoking status: Never smoker Second hand tobacco smoke exposure: No Alcohol intake: never Substance use: never Substance use type: does not use Lack of Transportation: No Lack of Food: Never True Current Housing: I Have Housing Concerned About Future Housing: No Difficulty Paying Gas/Electric Bills: No Difficulty Paying for Meds: No Currently Unemployed: No Education: High School Diploma/GED Living arrangements: with family Additional living arrangements comments: Occupation/Education: retired Gender identity (if verbalized by the patient): Female Sexual Orientation (if Verbalized by the Patient): Straight or Heterosexual Spiritual care concerns: No Agree to blood products: Yes Anes - Eval Final PreProcedure Day of Procedure 07/20/25 11:30 Heart: regular rate and rhythm Lungs: clear to auscultation and normal air movement Airway: Mallampati scale Neurological: alert and oriented Last oral intake: >/= 8 hours ASA classification: III Emergent: no Anesthetic plan: proceed Anesthesia type and monitoring: general Results Review: All pre-operative results and documents have been reviewed as part of the pre-operative evaluation. Informed Consent: The patient's anesthetic plan and its attendant risks and benefits were discussed with the patient/family/POA. Questions were solicited and answers provided to the satisfaction of the patient/family/POA.
[2025-07-20] MEDS: ceFAZolin SODIUM 2 GM/20 ML SW SYRINGE IV PUSH (12:00)
[2025-07-20] MEDS: BUPivacaine HCL 0.5% 10 ML AMP INFILTRATE (12:02)
[2025-07-20] MEDS: LIDOCAINE 1% LOCAL INJ 20 ML VIAL 10 ML INFILTRATE (12:02)
[2025-07-20 12:05] VITALS: BP 112/52; PULSE 63; RESP 14; O2SAT 100
--- NOTE | 2025-07-20 12:08 | WPDANESPN ---
Anes - Prog Note Post-Op Date/Time: 07/20/25 12:08 Cardiovascular status: normal Respiratory status: normal Airway patency: baseline Mental status: baseline Post-Op hydration status: normal Vital Signs: Last Vital Signs Pulse 62 07/20/25 10:15 Resp 16 07/20/25 10:15 BP 148/53 H 07/20/25 10:15 Pulse Ox 100 07/20/25 10:15 O2 Del Method Room Air 07/20/25 10:15 Pain Score (VAS): 0 07/20/25 11:20 POC Capillary Glucose 130 H Post-procedural complaints: none Patient Feedback: Patient satisfied with anesthetic care.
[2025-07-20 12:15] VITALS: BP 139/56; PULSE 64; RESP 16; O2SAT 98
[2025-07-20 12:25] VITALS: BP 122/59; PULSE 60; RESP 16; O2SAT 98
== END 2025-07-20 12:45 | disposition home or self-care (01) ==
LOC: ASC 09:58
PROVIDERS: PCP Family Medicine; Visit Provider Plastic Surgery
PROC: (CPT 26210; principal; 2025-07-20 11:30)
DX: M67.441 Ganglion, right hand (principal); M25.741 Osteophyte, right hand
CPT/HCPCS: 26210

== ENCOUNTER 2025-09-18 10:12 | Outpatient (CLI) | payer MEDICARE, SELFPAY ==
--- NOTE | ~2025-09-18 | XR_ITS ---
EXAM/PROCEDURE: XR abdomen/kub 1V HISTORY: left ureteral stone COMPARISON: 04/22/2024 TECHNIQUE: KUB FINDINGS: At least moderate possibly large amount of stool extends to the cecum. No grossly distended loops of bowel. Cholecystectomy clips right upper quadrant. The remainder the exam is unchanged in appearance. IMPRESSION: Nonspecific bowel gas pattern with moderate possibly large amount of stool. Reviewed, dictated and finalized at location A. 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
== END 2025-09-18 10:13 | disposition home or self-care (01) ==
PROVIDERS: PCP Family Medicine; Visit Provider Urology
DX: N20.1 Calculus of ureter (principal)
CPT/HCPCS: 74018